=== PATIENT | male | born 1955 | race Hispanic/Latino ===

== ENCOUNTER 2019-06-29 07:58 | Inpatient (IN) | payer OTHER ==
[~2019-06-29] VITALS: Ht 165.1 cm; Wt 129.3 kg
[~2019-06-29 07:58] MED LIST: ALLOPURINOL100 MG PO; AMARYL4 MG PO; ASPIR 8181 MG PO; HYDRALAZINE HCL10 MG PO; JANUVIA100 MG PO; NORCO 5-325 TA1 EACH PO; VASOTEC10 M1 PO; Zocor PO
[2019-06-29 08:53] LABS: BASOPHILS % 0.3 % (0.0-1.0); EOSINOPHILS # (AUTO) 0.1 (0.0-0.4); EOSINOPHILS % 0.7 % (0.0-6.0); HEMATOCRIT 38.8 % (38.2-49.6); LYMPHOCYTES # (AUTO) 0.6 (1.0-3.2); LYMPHOCYTES % 7.9 % (18.0-39.1); MEAN CORPUSCULAR HEMOGLOBIN 29.6 pg (28-32); MEAN CORPUSCULAR HGB CONC 33.5 g/dL (31-35); MEAN CORPUSCULAR VOLUME 88.4 fL (81-99); MONOCYTES # (AUTO) 0.5 (0.2-0.8); MONOCYTES % 6.2 % (4.4-11.3); NEUTROPHILS # (AUTO) 6.2 (2.1-6.9); NEUTROPHILS % 84.6 % (38.7-80.0); PLATELET COUNT 125 x10e3/uL (140-360); RED BLOOD COUNT 4.39 x10e6/uL (4.3-5.7); RED CELL DISTRIBUTION WIDTH 14.5 % (11.7-14.4)
[2019-06-29 08:54] LABS: BILIRUBIN,URINE SMALL (NEGATIVE); CLARITY,URINE CLEAR (CLEAR); COLOR,URINE YELLOW (YELLOW); KETONES,URINE NEGATIVE (NEGATIVE); LEUKOCYTE ESTERASE ,URINE NEGATIVE (NEGATIVE); NITRITE,URINE NEGATIVE (NEGATIVE); URINE UROBILINOGEN 1 mg/dL (0.2 - 1)
[2019-06-29 08:57] LABS: PROTEIN,URINE DIPSTICK 3+ (NEGATIVE)
[2019-06-29] MEDS ORDERED: ACETAMINOPHEN 325 MG TAB PO ONE (09:00)
[2019-06-29 09:07] LABS: ALBUMIN 2.7 g/dL (3.5-5.0); ALBUMIN/GLOBULIN RATIO 0.6 (0.8-2.0); ANION GAP 12.2 mmol/L (8-16); CREATININE, SERUM 2.66 mg/dL (0.72-1.25); POTASSIUM 4.2 mmol/L (3.5-5.1); RBC,URINE 0-5 /HPF (0-5)
[2019-06-29 09:08] LABS: BACTERIA,URINE MODERATE /HPF; EPITHELIAL CELLS,URINE FEW /LPF
[2019-06-29 09:09] LABS: AMORPHOUS SEDIMENT,URINE FEW (FEW); HYALINE CASTS 0-1 (0-1); MUCUS,URINE RARE (RARE)
[2019-06-29] MEDS ORDERED: SODIUM CHLORIDE 0.9% 1000ML 1,000 ML IV ONE (09:15)
--- NOTE | 2019-06-29 09:22 | Diagnostic Imaging Report ---
EXAMINATION: CHEST 2 VIEWS INDICATION: Sepsis COMPARISON: None FINDINGS: LINES/TUBES:None LUNGS:The lungs are well-inflated. No focal consolidation or pulmonary edema. PLEURA:No pleural effusion or pneumothorax. MEDIASTINUM:The heart is mildly enlarged. BONES/SOFT TISSUES:No acute osseous injury. ABDOMEN:No free air under the diaphragm. IMPRESSION: Mild cardiomegaly. No focal pneumonia or pulmonary edema. Signed by: Sapna Earl MD on 06/29/2019 9:19 AM
[2019-06-29 09:27] LABS: EOSINOPHILS % (MANUAL) 2 % (0-7); LYMPHOCYTES % (MANUAL) 4 % (19-48); MONOCYTES % (MANUAL) 8 % (3.4-9.0); NEUTROPHILS % (MANUAL) 86 % (40-74)
[2019-06-29 09:28] LABS: PLATELET ESTIMATE SLIGHTLY DECREASED; RBC MORPHOLOGY COMMENT NORMAL
[2019-06-29 09:29] LABS: PLATELET MORPHOLOGY COMMENT NORMAL
[2019-06-29 09:30] LABS: INFLUENZAE A&B ANTIGEN (RAPID) NEGATIVE (NEGATIVE); STREPTOCOCCUS GRP A ANTIGEN NEGATIVE (NEGATIVE)
[2019-06-29] MEDS ORDERED: ONDANSETRON HCL INJ 2MG/ML 2ML 2 MG/ML VIAL IV ONE (09:30)
[2019-06-29] MEDS ORDERED: FAMOTIDINE 20 MG/2 ML VIAL IV ONE (10:00)
[2019-06-29] MEDS ORDERED: DIATRIZOATE MEGL/DIATRIZOA SOD 30 ML BTL PO ONE (11:28)
--- NOTE | 2019-06-29 13:36 | Diagnostic Imaging Report ---
EXAM: CT Abdomen and Pelvis WITHOUT intravenous contrast INDICATION: Left lower quadrant abdominal pain. COMPARISON: None. TECHNIQUE: Abdomen and pelvis were scanned utilizing a multidetector helical scanner from the lung base to the pubic symphysis without administration of IV contrast. Coronal and sagittal reformations were obtained. IV CONTRAST: None ORAL CONTRAST: Gastrografin COMPLICATIONS: None RADIATION DOSE: Total DLP: 1222.1 mGy*cm Dose modulation, iterative reconstruction, and/or weight based adjustment of the mA/kV was utilized to reduce the radiation dose to as low as reasonably achievable. FINDINGS: LOWER THORAX: No lung base consolidation. Scattered atherosclerotic coronary artery calcifications. HEPATOBILIARY: No focal liver lesions. Mildly distended gallbladder measuring up to 5.2 cm maximum diameter. Dependent radiopaque gallstones. No gallbladder wall thickening or pericholecystic fluid. Distal common bile duct dilated to 12 mm. SPLEEN: No splenomegaly. PANCREAS: No focal masses or ductal dilatation. ADRENALS: No adrenal nodules. KIDNEYS/URETERS: No hydronephrosis or renal calculi. Left renal cysts measure up to 2.8 cm. Mild bilateral perinephric stranding. PELVIC ORGANS/BLADDER: Prostatomegaly to 5.7 cm. PERITONEUM / RETROPERITONEUM: No free air or fluid. LYMPH NODES: No lymphadenopathy. VESSELS: Scattered atherosclerotic calcifications of the nonaneurysmal abdominal aorta and major branches. GI TRACT: No abnormal bowel wall thickening. No bowel obstruction. Normal appendix. BONES AND SOFT TISSUES: No acute osseous injury. No suspicious lytic or blastic lesions. Mild degenerative changes of the visualized spine. Small focal hernia containing a small amount of fat. IMPRESSION: Cholelithiasis and mildly distended gallbladder without specific CT evidence of cholecystitis. Dilation of the distal common bile duct to 12 mm. If the patient has symptoms localizing to the right upper quadrant, recommend MRCP to exclude distal biliary ductal obstruction. No abnormal bowel thickening or bowel obstruction. Atherosclerotic arterial calcifications including of the coronary arteries. Signed by: Sapna Earl MD on 06/29/2019 1:32 PM
[2019-06-29] MEDS ORDERED: MORPHINE SULFATE INJ 4 MG/ML INJ 1ML IV PRN (14:15)
[2019-06-29] MEDS ORDERED: ONDANSETRON HCL INJ 2MG/ML 2ML 2 MG/ML VIAL IV PRN (14:15)
[2019-06-29] MEDS ORDERED: SODIUM CHLORIDE FLUSH 10 ML SYR INJ PRN (14:15)
[2019-06-29] MEDS ORDERED: MORPHINE SULFATE 2 MG/ML SYR 1ML IV PRN (14:15)
--- OUTSIDE RECORDS SUMMARY | 2019-06-29 14:20 | XMS REPORT ---
Author [facility] Address Unknown Phone Unavailable Care Team Providers Care Animal Nutrition Consultant Name Role Phone Rolanda RIOS Unavailable Unavailable Problems This patient has no known problems. Allergies, Adverse Reactions, Alerts This patient has no known allergies or adverse reactions. Medications This patient has no known medications. Results Test Description Test Time Test Comments Text Results Atomic Results Result Comments CT ABDOMEN/PELVIS WO 2019-06-29 13:23:00 [facility] [address] [address] Patient Name: DANICA QUINTANA MR #: [id number] : 1955 Age/Sex: 63/M Req #: [id number] Adm Physician: Ordered by: MIKE RIOS MD Report #: [id number] Location: ER Room/Bed: Procedure: [id number] CT/CT ABDOMEN/PELVIS WO Exam Date: 06/29/19 Exam Time: 1230 REPORT STATUS: Signed EXAM: CT Abdomen and Pelvis WITHOUT intravenous contra st INDICATION: Left lower quadrant abdominal pain. COMPARISON: None. TECHNIQUE: Abdomen and pelvis were scanned utilizing a multidetector helical scanner from the lung base to the pubic symphysis without administration of IV contrast. Coronal and sagittal reformations were obtained. IV CONTRAST: None ORAL CONTRAST: Gastrografin COMPLICATIONS: None RADIATION DOSE: Total DLP: 1222.1 mGy*cm Dose modulation, iterative reconstruction, and/or weight based adjustment of the mA/kV was utilized to reduce the radiation dose to as low as reasonably achievable. FINDINGS: LOWER THORAX: No lung base consolidation. Scattered atherosclerotic coronary artery calcifications. HEPATOBILIARY: No focal liver lesions. Mildly distended gallbladder measuring up to 5.2 cm maximum diameter. Dependent radiopaque gallstones. No gallbladder wall thickening or pericholecystic fluid. Distal common bile duct dilated to 12 mm. SPLEEN: No splenomegaly. PANCREAS: No focal masses or ductal dilatation. ADRENALS: No adrenal nodules. KIDNEYS/URETERS: No hydronephrosis or renal calculi. Left renal cysts measure up to 2.8 cm. Mild bilateral perinephric stranding. PELVIC ORGANS/BLADDER: Prostatomegaly to 5.7 cm. PERITONEUM / RETROPERITONEUM: No free air or fluid. LYMPH NODES: No lymphadenopathy. VESSELS: Scattered atherosclerotic calcifications of the nonaneurysmal abdominal aorta and major branches. GI TRACT: No abnormal bowel wall thickening. No bowel obstruction. Normal appendix. BONES AND SOFT TISSUES: No acute osseous injury. No suspicious lytic or blastic lesions. Mild degenerative changes of the visualized spine. Small focal hernia containing a small amount of fat. IMPRESSION: Cholelithiasis and mildly distended gallbladder without specific CT evidence of cholecystitis. Dilation of the distal common bile duct to 12 mm. If the patient has symptoms localizing to the right upper quadrant, recommend MRCP to exclude distal biliary ductal obstruction. No abnormal bowel thickening or bowel obstruction. Atherosclerotic arterial calcifications including of the coronary arteries. Signed by: Teresa Earl MD on 06/29/2019 1:32 PM Dictated By: TERESA EARL MD [id number] Transcribed By: GWENDOLYN on 06/29/19 1332 COPY TO: MIKE RIOS MD CHEST 2 VIEWS 2019-06-29 09:17:00 [address] [address] Patient Name: DANICA QUINTANA MR #: [id number] : 1955 Age/Sex: 63/M Req #: [id number] Adm Physician: Ordered by: MIKE RIOS MD Report #: [id number] Location: ER Room/Bed: Procedure: [id number] DX/CHEST 2 VIEWS Exam Date: 06/29/19 Exam Time: 899 REPORT STATUS: Signed EXAMINATION: CHEST 2 VIEWS INDICATION: Sepsis COMPARISON: None FINDINGS: LINES/TUBES:None LUNGS:The lungs are well-inflated. No focal consolidation or pulmonary edema. PLEURA:No pleural effusion or pneumothorax. MEDIASTINUM:The heart is mildly enlarged. BONES/SOFT TISSUES:No acute osseous injury. ABDOMEN:No free air under the diaphragm. IMPRESSION: Mild cardiomegaly. No focal pneumonia or pulmonary edema. Signed by: Teresa Earl MD on 06/29/2019 9:19 AM Dictated By: TERESA EARL MD 8 Transcribed By: GWENDOLYN on 06/29/19918 COPY TO: MIKE RIOS MD
[2019-06-29] MEDS: SODIUM CHLORIDE 0.9% 1000ML 1,000 ML IV SCH ×2 (15:02→23:02)
--- NOTE | 2019-06-29 15:06 | Diagnostic Imaging Report ---
EXAM: Right upper quadrant abdominal ultrasound INDICATION: Right upper quadrant pain COMPARISON: Abdomen and pelvis CT of 06/29/2019 TECHNIQUE: Transverse and longitudinal images of the right upper quadrant abdomen were obtained FINDINGS: Liver: Size: 18.0 cm in the right midclavicular line, normal Appearance: Normal echogenicity, smooth contour Mass: No focal masses Gallbladder: Radiopaque gallstones and small amount of sludge in the gallbladder. No gallbladder wall thickening or pericholecystic fluid. Negative sonographic Blum's sign. Gallbladder wall measures 2 mm. Bile Ducts: Intrahepatic Ducts: No dilatation Extrahepatic Ducts: Common bile duct measures 10 mm, dilated Pancreas: Visualized portions of the pancreatic head, neck and proximal body are normal. Kidney: The right kidney measures 11.1 cm without evidence of hydronephrosis or stone. Vessels: Aorta: Visualized portions are normal Inferior Vena Cava: Visualized portions are normal Main Portal Vein: 0.9 cm, normal size with hepatopetal flow. Free Fluid: No ascites or pleural effusion IMPRESSION: Cholelithiasis and gallbladder sludge. No sonographic evidence of cholecystitis. Dilated common bile duct. Signed by: Sapna Earl MD on 06/29/2019 3:03 PM
--- NOTE | 2019-06-29 15:50 | NUR ---
Received patient from ER. Respiration even and unlabored. Denies pain. Call light in reach. Family at bedside.
[2019-06-29 16:00] VITALS: BP 188/92
[2019-06-29 16:28] VITALS: BP 188/92
[2019-06-29 16:59] VITALS: BP 188/92
[2019-06-29 19:18] VITALS: BP 173/92
--- NOTE | 2019-06-29 19:18 | NUR ---
PT IS RESTING IN BED WITH AT BEDSIDE. RESPIRATION IS EVEN AND UNLABORED, NO DISTRESS NOTED. BED IN THE LOWEST POSITION, LOCKED, AND CALL LIGHT WITHIN REACH. WILL CONTINUE TO MONITOR.
[2019-06-29 20:01] VITALS: BP 173/88
--- NOTE | 2019-06-29 20:50 | NUR ---
PER DR Mamie VARGAS CHANGE MRCP TO STAT WITHOUT CONTRAST. SPOKE TO SHERRI IN RADIOLOGY AND NOTIFIED HER OF THE CHANGE. WILL CONTINUE TO MONITOR.
[2019-06-29 23:39] VITALS: BP 164/88
[2019-06-30] VITALS (7 sets, daily range): BP systolic 140–179; BP diastolic 65–86
--- NOTE | 2019-06-30 00:20 | Diagnostic Imaging Report ---
EXAM: Magnetic Resonance Cholangiopancreatography (M.R.C.P.) INDICATION: Gallstone , common bile duct dilation COMPARISON: Abdominal CT 06/29/2019. TECHNIQUE: Multiplanar, multisequence MRCP was performed, with departmental protocol. IV Contrast: None Oral Contrast: None Medications: None COMPLICATIONS: None FINDINGS: Several sequences contain significant motion artifact which limits evaluation. In the coronal SSFSE sequence skips posterior half of common bile duct. LOWER THORAX: Unremarkable. HEPATOBILIARY: No focal hepatic lesions. The common bile duct measures up to 1.2 cm in diameter and smoothly tapers distally without a discrete distal biliary duct obstructing lesion. A questionable punctate signal void in the mid common bile duct (series 7 image 31), although this could be an artifact and is not seen on the heavily T2 weighted sequences and evaluation on other sequences is limited due to motion. On the thin slice heavily T2-weighted sequence punctate nonobstructive signal voids in the common hepatic duct (series 12 image 5), are not seen on other sequences, without proximal biliary ductal dilation. GALLBLADDER: A few discrete subcentimeter signal voids in the dependent aspect of the proximal gallbladder body consistent with gallstones. Gallbladder is distended up to 11.8 cm. No wall thickening. SPLEEN: No splenomegaly. PANCREAS: No focal masses or ductal dilatation. ADRENALS: No adrenal nodules KIDNEYS/URETERS: No hydronephrosis. No cystic or solid mass lesions. No stones. A 1.4 cm simple cysts in the left renal inferior pole. Trace bilateral perinephric fat stranding. GI TRACT: No abnormal distention, wall thickening, or evidence of bowel obstruction. Appendix is not clearly identified. There is however no fat stranding or adenopathy in the right lower quadrant to suggest appendicitis. LYMPH NODES: No lymphadenopathy. VESSELS: Unremarkable. PERITONEUM / RETROPERITONEUM: No free air or fluid. BONES: There are degenerative changes in the spine. SOFT TISSUES: Unremarkable. IMPRESSION: Limited exam due to respiratory motion. 1. A few tiny layering dependent gallstones in the gallbladder lumen. The gallbladder is distended, without other evidence of acute obstructive cholecystitis. 2. Questionable punctate biliary stone in the mid common bile duct and in the main hepatic duct, although these findings could be artifactual due to scan limitations. No discrete obstructing lesion in the distal common bile duct to explain common bile duct dilation, rather the common bile duct smoothly tapers at the ampulla. Signed by: Demetri Fong DO on 06/30/2019 12:17 AM
[2019-06-30 05:04] LABS: BASOPHILS % 0.6 % (0.0-1.0); EOSINOPHILS # (AUTO) 0.1 (0.0-0.4); EOSINOPHILS % 1.4 % (0.0-6.0); HEMATOCRIT 33.8 % (38.2-49.6); HEMOGLOBIN 11.1 g/dL (14.0-18.0); LYMPHOCYTES # (AUTO) 0.6 (1.0-3.2); LYMPHOCYTES % 11.6 % (18.0-39.1); MEAN CORPUSCULAR HEMOGLOBIN 29.5 pg (28-32); MEAN CORPUSCULAR HGB CONC 32.8 g/dL (31-35); MEAN CORPUSCULAR VOLUME 89.9 fL (81-99); MONOCYTES # (AUTO) 0.5 (0.2-0.8); MONOCYTES % 9.6 % (4.4-11.3); NEUTROPHILS # (AUTO) 3.8 (2.1-6.9); NEUTROPHILS % 76.6 % (38.7-80.0); PLATELET COUNT 106 x10e3/uL (140-360); RED BLOOD COUNT 3.76 x10e6/uL (4.3-5.7); RED CELL DISTRIBUTION WIDTH 14.5 % (11.7-14.4)
[2019-06-30 05:13] LABS: INR 0.94; PROTHROMBIN TIME 13.1 seconds (11.9-14.5)
[2019-06-30 05:25] LABS: ALBUMIN 2.5 g/dL (3.5-5.0); ALBUMIN/GLOBULIN RATIO 0.7 (0.8-2.0); ANION GAP 11.8 mmol/L (8-16); CALCIUM 9.7 mg/dL (8.4-10.2); CREATININE, SERUM 2.49 mg/dL (0.72-1.25); POTASSIUM 3.8 mmol/L (3.5-5.1)
[2019-06-30] MEDS: SODIUM CHLORIDE 0.9% 1000ML 1,000 ML IV SCH (06:09)
[2019-06-30] MEDS: DEXTROSE 5%/0.9% SOD CHL 1,000 ML IV SCH (08:09)
[2019-06-30] MEDS ORDERED: DEXTROSE 50% SYRINGE 50 ML IV ONE (08:30)
--- NOTE | 2019-06-30 09:00 | NUR ---
pt alert resp even and unlabored, no distress noted, pt able to make needs known, no c/o pain at this time, call light in reach
--- NOTE | 2019-06-30 09:50 | NUR ---
PT SIGN CONSENT FOR PROCEDURE.
[2019-06-30] MEDS: CEFOXITIN 1GM/ D5W 50ML 50 ML IV SCH ×3 (10:00→21:27)
[2019-06-30] MEDS ORDERED: DEXTROSE 50% SYRINGE 50 ML IV PRN (10:00)
[2019-06-30] MEDS: INSULIN LISPRO 100 UNIT/1 ML 3ML VIAL SQ SCH ×3 (11:30→20:13)
--- NOTE | 2019-06-30 12:30 | Consultation ---
DATE OF CONSULTATION: 06/30/2019 HISTORY OF PRESENT ILLNESS: The patient is a 63-year-old male, who presents with complaints of abdominal pain. Says he has had pain in the upper abdomen for about 3 days. He has had some associated nausea. He has not had any fever. Evaluation with imaging studies revealed gallstones and sludge in the gallbladder. An MRCP was done, which revealed question of filling defects in the bile ducts outside the gallbladder. CT of the abdomen revealed the gallbladder to be distended with no fluid around. PAST MEDICAL HISTORY: Significant for hypertension, diabetes, hyperlipidemia, and gout. ALLERGIES: HE HAS NO KNOWN ALLERGIES. PAST SURGICAL HISTORY: He has not had previous abdominal surgeries. CURRENT MEDICATIONS: Listed in the chart. FAMILY HISTORY: Noncontributory. SOCIAL HISTORY: The patient does not smoke cigarettes. Occasionally drinks alcohol. REVIEW OF SYSTEMS: As stated above, he has had no fever, no weight loss. PHYSICAL EXAMINATION: GENERAL: The patient is awake and alert, in no distress. VITAL SIGNS: At this time are normal. HEENT: The sclerae are not icteric. NECK: Supple. No masses. LUNGS: Equal breath sounds are clear bilaterally. CARDIAC: Regular rate and rhythm with no murmur. ABDOMEN: Tender in the right upper quadrant. There is no mass. There are no definite signs of peritonitis. There is no organomegaly. EXTREMITIES: No edema. NEUROLOGIC: Grossly intact. LABORATORY TESTS: The white blood cell count is normal. Hemoglobin and hematocrit are normal. Chemistries revealed normal lipase. Bilirubin is mildly elevated at 1.7. AST, ALT, and alkaline phosphatase are also elevated. BUN and creatinine are also elevated. ASSESSMENT: A 63-year-old male with findings suggestive of acute cholecystitis and cholelithiasis, possible choledocholithiasis. He has been seen by Gastroenterology and an ERCP is planned for today. He will benefit from cholecystectomy, which I planned to schedule for tomorrow. Procedure was explained to the patient including risks, benefits, and alternatives. He understands. He has had the opportunity to ask questions. Thank you for asking me to see Mr. Romero. MD INGRID Choe/OSMIN /[id number]
[2019-06-30] MEDS ORDERED: IOPAMIDOL 300MG/ML 50ML INFUS..BTL IV ONE ×2 (12:50→13:31)
--- NOTE | 2019-06-30 13:27 | NUR ---
Attempted to do DPA. Pt off unit at procedure at this time.
--- NOTE | 2019-06-30 15:38 | History and Physical ---
PRIMARY CARE PHYSICIAN: Rohit Haskins MD. CHIEF COMPLAINT: Abdominal pain for the past 3 days. HISTORY OF PRESENT ILLNESS: A 63-year-old male, morbidly obese, baseline; gout, diabetes, hypertension, and dyslipidemia, came in with abdominal pain for the past 3 days. His lab work in the emergency room showed that he has elevated liver enzyme, sign of obstruction and further workup with ultrasound of abdomen was complete along with CT scan of the abdomen, pelvis, and then subsequently MRCP showing that he has a small common bile duct stone along with that gallstone. The patient is pending for further evaluation with Gastroenterology and subsequently will need to see a general surgeon for his gallbladder removal. PAST MEDICAL HISTORY: Obesity, diabetes type 2, hypertension, dyslipidemia. PAST SURGICAL HISTORY: Noncontributory. SOCIAL HISTORY: The patient does not smoke or use alcohol. No recreational drugs. ALLERGIES: NO KNOWN ALLERGIES. HOME MEDICATIONS: List reviewed. REVIEW OF SYSTEMS: As mentioned above. PHYSICAL EXAMINATION: VITAL SIGNS: Temperature is 98, blood pressure 143/66, pulse rate is 64, respirations 17. GENERAL: The patient is awake, alert, and oriented, not in any distress. HEENT: Normocephalic, atraumatic. Pupils reactive. Anicteric. NECK: Grossly supple. PULMONARY: Clear. CARDIOVASCULAR: Regular rate and rhythm. ABDOMEN: Soft, obese. Tenderness in the upper quadrant area, more so in the right upper than left upper quadrant area. No rebound or guarding. EXTREMITIES: No cyanosis or edema. NEUROLOGIC: There is no gross focal deficit. LABORATORY DATA: Sodium 136, potassium 3.8, chloride 108, bicarb 20, BUN 33, creatinine 2.5, glucose is 62, lactic acid is normal 0.8, total bilirubin is 1.7, AST 80, ALT 144, alkaline phos is 383, albumin is 2.8. WBC is 7.3, hemoglobin 13, hematocrit 39, platelets 125. MRCP showed that he has a tiny gallstone in the gallbladder lumen. There is a punctate biliary stone in the mid common bile duct, gallbladder with gallstones. Abdomen and pelvis with acute cholecystitis. IMPRESSION: 1. Common bile duct stone. 2. Cholecystitis. 3. Morbid obesity. 4. Diabetes type 2. 5. Hypertension. 6. Dyslipidemia. PLAN: Consultation with Dr. Juan Weller and Dr. Elroy Law. Continue with antibiotic. Supportive measure. Pain control. IV fluids. We will follow up on the patient's bypass and surgical management. MD JR Mcintyre/OSMIN /[id number]
[2019-06-30] MEDS: FAMOTIDINE 20 MG/2 ML VIAL IV SCH (17:00)
--- NOTE | 2019-06-30 18:36 | NUR ---
pt consent signed for gallbladder procedure.
--- NOTE | 2019-06-30 19:11 | NUR ---
report given to to oncoming nurse.
--- NOTE | 2019-06-30 19:15 | NUR ---
patient received awake, alert, lying quietly in bed. no c/o pain noted. ivf continue to infuse without difficulty. patient to remain npo after mn for surgery tomorrow. patient verbalizes understanding of this. pm assessment complete. noted at the bedside. patient instructed to call for assistance when needed.
--- NOTE | 2019-06-30 20:19 | Diagnostic Imaging Report ---
Hepatobiliary Scan with Gallbladder Ejection Fraction Clinical information: Abdominal pain; cholelithiasis; transaminitis Technique: Following intravenous administration of 6.6 millicuries of Tc-99m mebrofenin, dynamic images of the abdomen in the anterior projection were obtained through 54 minutes. Sincalide (CCK analog) 2.7 micrograms was administered intravenously over 30 minutes with additional imaging for determination of gallbladder ejection fraction. Discussion: Perfusion of the liver is normal. Extraction of tracer by the liver parenchyma is mildly prolonged. Tracer appears promptly within the biliary tract. The bile ducts in the left hepatic lobe have an entangled appearance. The gallbladder begins to fill by 40 minutes post injection of tracer and fills adequately. Tracer is seen in the small bowel during the sincalide infusion. There is no contractile response by the gallbladder to the pharmacologic dose of sincalide. No emptying of the gallbladder occurs during the 30 minute infusion. Impression: 1. Filling of the gallbladder excludes acute cystic duct obstruction/acute cholecystitis. 2. The gallbladder ejection fraction is undefined as there is no emptying of the gallbladder during the infusion of sincalide. This absence of a contractile response to sincalide supports the clinical diagnosis of chronic cholecystitis/gallbladder dyskinesia. 3. Mild hepatocyte dysfunction consistent with transaminitis. 4. Entangled appearance of the bile ducts in the left hepatic lobe is of uncertain clinical significance. No correlate is seen on the MRI MRCP of 06/29/[address] abdo/pelvis of 06/29/2019. Signed by: Dr. Christina Rodríguez M.D. on 07/01/2019 9:26 AM
[2019-07-01] VITALS (8 sets, daily range): BP systolic 145–176; BP diastolic 69–85
[2019-07-01] MEDS: DEXTROSE 5%/0.9% SOD CHL 1,000 ML IV SCH ×3 (02:51→23:06)
[2019-07-01 05:53] LABS: BASOPHILS % 0.6 % (0.0-1.0); EOSINOPHILS # (AUTO) 0.2 (0.0-0.4); EOSINOPHILS % 3.4 % (0.0-6.0); HEMOGLOBIN 11.4 g/dL (14.0-18.0); LYMPHOCYTES # (AUTO) 1.1 (1.0-3.2); LYMPHOCYTES % 22.6 % (18.0-39.1); MEAN CORPUSCULAR HEMOGLOBIN 29.4 pg (28-32); MEAN CORPUSCULAR HGB CONC 32.6 g/dL (31-35); MEAN CORPUSCULAR VOLUME 90.2 fL (81-99); MONOCYTES # (AUTO) 0.6 (0.2-0.8); MONOCYTES % 11.9 % (4.4-11.3); NEUTROPHILS # (AUTO) 2.8 (2.1-6.9); NEUTROPHILS % 61.3 % (38.7-80.0); PLATELET COUNT 122 x10e3/uL (140-360); RED BLOOD COUNT 3.88 x10e6/uL (4.3-5.7); RED CELL DISTRIBUTION WIDTH 14.6 % (11.7-14.4)
[2019-07-01] MEDS: CEFOXITIN 1GM/ D5W 50ML 50 ML IV SCH ×3 (05:58→21:57)
[2019-07-01 06:20] LABS: ANION GAP 13.1 mmol/L (8-16); POTASSIUM 4.1 mmol/L (3.5-5.1)
[2019-07-01 06:21] LABS: ALBUMIN 2.3 g/dL (3.5-5.0); ALBUMIN/GLOBULIN RATIO 0.6 (0.8-2.0); CALCIUM 9.7 mg/dL (8.4-10.2); CREATININE, SERUM 2.52 mg/dL (0.72-1.25)
--- NOTE | 2019-07-01 07:00 | NUR ---
BEDSIDE SHIFT REPORT RECEIVED FROM INGA OLIVEIRA. PT DENIES NEEDS AT THIS TIME.
[2019-07-01] MEDS: INSULIN LISPRO 100 UNIT/1 ML 3ML VIAL SQ SCH ×4 (07:30→21:00)
[2019-07-01] MEDS: FAMOTIDINE 20 MG/2 ML VIAL IV SCH ×2 (08:33→17:00)
[2019-07-01] MEDS ORDERED: BUPIVACAINE HCL 0.5% INJ 30 ML VIAL INJ ONE (14:03)
--- NOTE | 2019-07-01 14:17 | NUR ---
PT OFF THE FLOOR TO OR.
[2019-07-01] MEDS ORDERED: IOPAMIDOL 300MG/ML 50ML INFUS..BTL IV ONE (14:59)
[2019-07-01] MEDS ORDERED: ONDANSETRON HCL INJ 2MG/ML 2ML 2 MG/ML VIAL IV PRN (16:45)
[2019-07-01] MEDS ORDERED: HYDROCODONE/APAP 7.5MG-325MG 1 EA TAB PO PRN (16:45)
[2019-07-01] MEDS ORDERED: FENTANYL CITRATE/PF 100MCG/2 ML INJ ONE ×2 (16:57→19:12)
[2019-07-01] MEDS ORDERED: ONDANSETRON HCL INJ 2MG/ML 2ML 2 MG/ML VIAL ONE ×2 (16:57→18:28)
[2019-07-01] MEDS ORDERED: HYDRALAZINE HCL 20 MG/ML VIAL ONE (17:42)
--- NOTE | 2019-07-01 18:27 | NUR ---
PT BACK TO THE FLOOR. VITALS WNL. PT HAS ABDOMINAL PAIN 9 OF 10. MEDICATED. SCD'S PLACED. PT DENIES FURTHER NEEDS AT THIS TIME. FAMILY AT BEDSIDE.
[2019-07-01] MEDS ORDERED: LIDOCAINE HCL 2% LOCAL INJ 5 ML SDV VIAL INJ ONE (18:28)
[2019-07-01] MEDS ORDERED: PROPOFOL IV EMULSION 10 MG/ML 20 ML VIAL ONE (18:28)
[2019-07-01] MEDS ORDERED: SEVOFLURANE INHAL SOLN 250 ML PEN BTL ONE (18:28)
[2019-07-01] MEDS ORDERED: DEXAMETHASONE SOD PHOS INJ 4 MG/ML VIAL ONE (18:28)
[2019-07-01] MEDS ORDERED: MIDAZOLAM HCL 2 MG/2 ML VIAL ONE (19:12)
--- NOTE | 2019-07-01 19:27 | NUR ---
Patient received lying in bed. AAO x 3. Family at bedside. Patient had no complaints of pain. No signs of respiratory distress. Trocar sites intact, no bleeding. Fall precautions implemented. Patient/ instructed to call for assistance when needed. Call light within reach.
--- NOTE | 2019-07-01 22:47 | Operative Report ---
DATE OF PROCEDURE: 07/01/2019 SURGEON: Juan Weller MD PREOPERATIVE DIAGNOSIS: Acute on chronic cholecystitis, cholelithiasis. POSTOPERATIVE DIAGNOSIS: Acute on chronic cholecystitis, cholelithiasis. PROCEDURES: Diagnostic laparoscopy, laparoscopic cholecystectomy attempted intraoperative cholangiogram. AIRLINE STEWARDESS: None. ANESTHESIA: General. INDICATIONS AND FINDINGS: The patient is a 63-year-old male who was admitted to the hospital with complaints of epigastric right upper quadrant abdominal pain, workup revealed gallstones. He has abnormal liver function tests and questionable stones in the common bile duct on MRCP. Attempted intraoperative cholangiogram was not successful as the cystic duct started to tear and the gallbladder was distended contained several small stones. TECHNIQUE: After adequate general endotracheal anesthesia patient in supine position, the abdomen was prepped and draped in a sterile fashion with ChloraPrep solution. Skin in the umbilicus was infiltrated with 0.5% Marcaine. Incision was made in the umbilicus abdominal wall was elevated and Veress needle was introduced. Pneumoperitoneum was then created. A 10 mm trocar and cannula was then passed through the umbilical wound. Laparoscopic camera was introduced. Initial laparoscopy revealed the gallbladder to be distended. Liver appeared normal. Stomach lower abdomen appeared normal, although obscured by omentum. A 10 mm trocar and cannula was placed in epigastrium, two 5 mm trocars and cannulas were placed in the right upper quadrant these were placed under direct vision. The gallbladder was tense, mildly edematous. It was decompressed with a needle. Fundus was then grasped, retracted superiorly neck of the gallbladder was grasped, retracted laterally. Peritoneum over the neck of the gallbladder was incised. The gallbladder cystic duct junction was dissected free. The cystic artery was also dissected free, the neck of the gallbladder completely dissected free. Cystic artery divided between hemoclips close to the gallbladder. A clip was then placed on the cystic duct close to the gallbladder. Cystic duct was only about 2 mm in diameter. Incision made in the cystic duct. However, attempts to pass the cholangiocatheter and the cystic duct started to tear. There was concern that the clips would not be able to be placed on the cystic duct. Because of this, I decided to not pursue the cholangiogram anymore. The cholangiocatheter was removed. The cystic duct was then divided between hemoclips with three clips being left on the common bile duct side. The gallbladder was dissected free from the liver using scissors and electrocautery. Once it was entirely free, it was placed into an Endopouch and brought through the epigastric cannula contained at least one small stone. The gallbladder bed was inspected for hemostasis which was seen to be adequate. It was irrigated with saline. All fluid aspirated inspected once again for hemostasis which was seen to be adequate. Instruments and cannulas were removed. Pneumoperitoneum was evacuated. Wounds were then closed. Fascia in the umbilical and epigastric wound closed with 0 Vicryl. Skin to all wounds closed with reuben. Sterile dressing was applied. The patient tolerated the procedure well. Estimated blood loss was 15 mL. There were no complications. All counts were correct. The patient was taken to the recovery room in satisfactory condition. MD INGRID Choe/MODL /[id number]
[2019-07-02] VITALS (8 sets, daily range): BP systolic 126–175; BP diastolic 60–93
--- NOTE | 2019-07-02 00:30 | NUR ---
Patient's BP elevated (175/93) with a heart rate of 89. Dr.J. Driver notified . Order received to discontinue IV fluids.
--- NOTE | 2019-07-02 01:30 | NUR ---
Blood pressure re-checked manually and recorded as 165/78. Will continue to monitor.
[2019-07-02 05:10] LABS: BASOPHILS % 0.2 % (0.0-1.0); HEMATOCRIT 40.3 % (38.2-49.6); LYMPHOCYTES # (AUTO) 0.7 (1.0-3.2); LYMPHOCYTES % 7.9 % (18.0-39.1); MEAN CORPUSCULAR HEMOGLOBIN 29.3 pg (28-32); MEAN CORPUSCULAR HGB CONC 32.3 g/dL (31-35); MONOCYTES # (AUTO) 0.6 (0.2-0.8); MONOCYTES % 6.6 % (4.4-11.3); NEUTROPHILS # (AUTO) 7.6 (2.1-6.9); NEUTROPHILS % 85.1 % (38.7-80.0); PLATELET COUNT 144 x10e3/uL (140-360); RED BLOOD COUNT 4.43 x10e6/uL (4.3-5.7); RED CELL DISTRIBUTION WIDTH 14.6 % (11.7-14.4)
[2019-07-02 05:39] LABS: ALBUMIN 2.5 g/dL (3.5-5.0); ALBUMIN/GLOBULIN RATIO 0.6 (0.8-2.0); ANION GAP 19.3 mmol/L (8-16); CALCIUM 9.9 mg/dL (8.4-10.2); CREATININE, SERUM 2.57 mg/dL (0.72-1.25); POTASSIUM 4.3 mmol/L (3.5-5.1)
[2019-07-02] MEDS: CEFOXITIN 1GM/ D5W 50ML 50 ML IV SCH ×3 (06:30→22:00)
--- NOTE | 2019-07-02 07:00 | NUR ---
BEDSIDE SHIFT REPORT RECEIVED FROM THE FUDGE CANDY MAKER RN. EDUCATED PT ABOUT FALL PRECAUTIONS. CALL LIGHT WITH IN EASY REACH. INSTRUCTED PT TO USE CALL LIGHT FOR ALL THE NEEDS. PT VERBALIZED UNDERSTANDING. BED IS LOW AND LOCKED. SIDE RAILS X2. PT FAMILY AT BEDSIDE. BED ALARM IS ON. PT DENIED FURTHER NEEDS.
--- NOTE | 2019-07-02 07:00 | NUR ---
Patient resting comfortably. Walking rounds done. Shift report given to oncoming nurse regarding patient's status.
[2019-07-02] MEDS: INSULIN LISPRO 100 UNIT/1 ML 3ML VIAL SQ SCH ×4 (08:52→21:42)
[2019-07-02] MEDS: FAMOTIDINE 20 MG/2 ML VIAL IV SCH ×2 (08:58→17:16)
--- NOTE | 2019-07-02 15:52 | NUR ---
PAGED DR. VILLARREAL REGARDING PT DIET CHANGE TO ADA FROM REGULAR. OKAY TO CHANGE PER THE
--- NOTE | 2019-07-02 19:00 | NUR ---
BEDSIDE SHIFT REPORT GIVEN TO THE TREE [employer]APPING [employer]ORER RN. PT DENIED FURTHER NEEDS. FAMILY AT BEDSIDE.
--- NOTE | 2019-07-02 19:05 | NUR ---
Patient visited in room during nursing rounds. Patient alert and oriented x3. No distress or discomfort noted. S/P Lap Cholecystectomy on 07/01/19 with 5 lap sites all over abdomen covered with band-aids (clean and dry). Pt denies pain at this time. Call shah within reach.
[2019-07-02] MEDS ORDERED: NORCO 7.5-3251 EACH PO (20:53)
--- NOTE | 2019-07-02 21:00 | NUR ---
Called Dr. Driver and informed patient's BP elevated at 174/93. MD aware and ordered to continue all home meds and included Nifedipine XL 30mg PO BID with first dose tonight.
[2019-07-02] MEDS ORDERED: HYDROCODONE/APAP 7.5MG-325MG 1 EA TAB PO PRN (21:15)
[2019-07-02] MEDS: NIFEDIPINE CR 30 MG TAB PO SCH (21:42)
[2019-07-02] MEDS: HYDRALAZINE HCL 25 MG TAB PO SCH (21:42)
--- NOTE | 2019-07-02 23:10 | NUR ---
Pt taking a shower by self. Linens changed.
[2019-07-03] VITALS: BP 160/90
--- NOTE | 2019-07-03 00:45 | NUR ---
Dr. Elroy Law came and visited pt in room. MD aware of pt condition.
[2019-07-03 04:00] VITALS: BP 145/70
[2019-07-03 06:07] LABS: ALBUMIN 2.3 g/dL (3.5-5.0); ALBUMIN/GLOBULIN RATIO 0.6 (0.8-2.0); ANION GAP 14.1 mmol/L (8-16); CALCIUM 9.9 mg/dL (8.4-10.2); CREATININE, SERUM 2.52 mg/dL (0.72-1.25); POTASSIUM 4.1 mmol/L (3.5-5.1)
[2019-07-03] MEDS: CEFOXITIN 1GM/ D5W 50ML 50 ML IV SCH ×2 (06:29→14:16)
--- NOTE | 2019-07-03 07:00 | NUR ---
BEDSIDE SHIFT REPORT RECEIVED FROM THE BARMAN RN. EDUCATED PT ABOUT FALL PRECAUTIONS. CALL LIGHT WITH IN EASY REACH. INSTRUCTED PT TO USE CALL LIGHT FOR ALL THE NEEDS. PT VERBALIZED UNDERSTANDING. BED IS LOW AND LOCKED. SIDE RAILS X2. PT AT BEDSIDE. PT DENIES NEEDS AT THIS TIME.
[2019-07-03 07:08] VITALS: BP 141/76
[2019-07-03] MEDS ORDERED: GLIMEPIRIDE 2 MG TAB PO SCH (07:30)
[2019-07-03] MEDS: INSULIN LISPRO 100 UNIT/1 ML 3ML VIAL SQ SCH ×2 (08:00→11:35)
[2019-07-03] MEDS: NIFEDIPINE CR 30 MG TAB PO SCH (08:00)
[2019-07-03] MEDS: FAMOTIDINE 20 MG/2 ML VIAL IV SCH (08:41)
[2019-07-03] MEDS: HYDRALAZINE HCL 25 MG TAB PO SCH (08:42)
[2019-07-03 08:44] VITALS: BP 141/76
[2019-07-03] MEDS ORDERED: PRAVASTATIN 20 MG TAB PO SCH (09:00)
[2019-07-03] MEDS ORDERED: ASPIRIN 325 MG TAB PO SCH (09:00)
[2019-07-03] MEDS ORDERED: ALLOPURINOL 100 MG TAB PO SCH (09:00)
[2019-07-03] MEDS ORDERED: SITAGLIPTIN 100 MG TAB PO SCH (09:00)
[2019-07-03 11:29] VITALS: BP 115/58
[2019-07-03] MEDS ORDERED: FAMOTIDINE20 MG PO (15:11)
[2019-07-03] MEDS ORDERED: NIFEDIPINE ER30 M1 (15:11)
[2019-07-03] MEDS ORDERED: TYLENOL WITH C1 EACH PO (15:12)
[2019-07-03] MEDS ORDERED: ZOFRAN4 MG SL (15:13)
[2019-07-03 15:18] VITALS: BP 120/78
--- NOTE | 2019-07-03 15:20 | NUR ---
PT DISCHARGED HOME SAFELY WITH HIS . PT ESCORTED TO THE PRIVATE CAR AT THE FRONT ENTRANCE. IV REMOVED. TIP INTACT. DRESSING APPLIED. RX GIVEN. PT DENIED FURTHER NEEDS.
== END 2019-07-03 15:38 | disposition home or self-care (01) | DRG 418 ==
LOC: ER 07:58 → ERHOLD 14:17 → MED/SURG2 15:51
PROVIDERS: ADMIT Internal Medicine; ATTEND Internal Medicine
PROC: 0FT44ZZ Resection of Gallbladder, Percutaneous Endoscopic Approach (ICD-10-PCS; principal; 2019-07-01 15:45)
DX: K80.12 Calculus of gallbladder with acute and chronic cholecystitis without obstruction (principal); Z68.42 Body mass index [BMI] 45.0-49.9, adult; N18.9 Chronic kidney disease, unspecified; E86.0 Dehydration; E11.22 Type 2 diabetes mellitus with diabetic chronic kidney disease; I12.9 Hypertensive chronic kidney disease with stage 1 through stage 4 chronic kidney disease, or unspecified chronic kidney disease; E66.01 Morbid (severe) obesity due to excess calories; M10.9 Gout, unspecified; E78.5 Hyperlipidemia, unspecified; I16.0 Hypertensive urgency; Z82.49 Family history of ischemic heart disease and other diseases of the circulatory system; Z79.82 Long term (current) use of aspirin; Z79.84 Long term (current) use of oral hypoglycemic drugs
CPT/HCPCS: 36415; 71046; 74176; 74181; 76705; 78227; 80053; 81001; 82948; 83518; 83605; 83690; 85025; 85610; 87040; 87070; 87086; 87400; 88304; 93005; 96372; 99284; A9537; J0360; J1100; J2001; J2250; J2270; J2405; J3010; J7030; J7042; J7799

== ENCOUNTER 2019-10-26 16:37 | Inpatient (IN) | payer OTHER ==
[~2019-10-26] VITALS: Ht 170.2 cm; Wt 129.3 kg
[~2019-10-26 16:37] MED LIST changes: +FAMOTIDINE20 MG PO; +NIFEDIPINE ER30 M1; +NORCO 7.5-3251 EACH PO; +TYLENOL WITH C1 EACH PO; +ZOFRAN4 MG SL
--- NOTE | 2019-10-26 16:50 | NUR ---
Pt reports he completed course of antibiotics 8 days ago, he reports it hasn't gotten worse. He reports the pain has decrease over the last 2 days. Noted 9cm in length and 4.5cm in width.
[2019-10-26] MEDS ORDERED: PIPER-TAZ 3.375 GM 50 ML IV STA (16:59)
[2019-10-26] MEDS ORDERED: MORPHINE SULFATE 2 MG/ML SYR 1ML IV PRN (17:15)
[2019-10-26] MEDS ORDERED: ONDANSETRON HCL INJ 2MG/ML 2ML 2 MG/ML VIAL IV PRN ×2 (17:15→19:45)
[2019-10-26] MEDS ORDERED: VANCOMYCIN 1GM/NS 250 ML 250 ML IV ONE ×2 (17:15→23:45)
[2019-10-26] MEDS ORDERED: MORPHINE SULFATE INJ 4 MG/ML INJ 1ML IV PRN (17:30)
--- NOTE | 2019-10-26 17:34 | Diagnostic Imaging Report ---
EXAM: CHEST SINGLE (PORTABLE) DATE: 10/26/2019 4:59 PM INDICATION: Head and neck abscess ^ERMD ORDER ^[id number] ^1700 ^Y COMPARISON: Chest x-ray, 06/29/2019 FINDINGS: Lines and tubes: None Heart is upper normal size for projection. No focal pulmonary opacity, pleural effusion or pneumothorax. Upper abdomen unremarkable. No acute bony abnormality to limits of portable imaging. IMPRESSION: No evidence for acute disease. Stable borderline heart size. Signed by: Dr. Matheus Pillai M.D. on 10/26/2019 5:30 PM
[2019-10-26] MEDS ORDERED: CLINDAMYCIN PHOS 900MG/ 50ML 50 ML IV SCH (18:00)
[2019-10-26 18:10] LABS: BASOPHILS # (AUTO) 0.1 (0.0-0.1); BASOPHILS % 0.6 % (0.0-1.0); EOSINOPHILS # (AUTO) 0.4 (0.0-0.4); EOSINOPHILS % 3.4 % (0.0-6.0); HEMATOCRIT 35.1 % (38.2-49.6); HEMOGLOBIN 11.4 g/dL (14.0-18.0); LYMPHOCYTES # (AUTO) 2.7 (1.0-3.2); LYMPHOCYTES % 21.5 % (18.0-39.1); MEAN CORPUSCULAR HEMOGLOBIN 28.5 pg (28-32); MEAN CORPUSCULAR HGB CONC 32.5 g/dL (31-35); MEAN CORPUSCULAR VOLUME 87.8 fL (81-99); MONOCYTES # (AUTO) 0.6 (0.2-0.8); MONOCYTES % 4.8 % (4.4-11.3); NEUTROPHILS # (AUTO) 8.5 (2.1-6.9); NEUTROPHILS % 68.2 % (38.7-80.0); PLATELET COUNT 255 x10e3/uL (140-360); RED CELL DISTRIBUTION WIDTH 14.5 % (11.7-14.4)
[2019-10-26 18:20] LABS: INR 0.99; PROTHROMBIN TIME 13.7 seconds (11.9-14.5)
[2019-10-26 18:21] LABS: PARTIAL THROMBOPLASTIN TIME 28.4 seconds (23.8-35.5)
[2019-10-26 18:30] LABS: ALBUMIN 2.7 g/dL (3.5-5.0); ALBUMIN/GLOBULIN RATIO 0.6 (0.8-2.0); CREATININE, SERUM 4.29 mg/dL (0.72-1.25)
[2019-10-26] MEDS ORDERED: SODIUM BICARBONATE 8.4% INJ 50 ML SYR IV STA (18:40)
[2019-10-26] MEDS ORDERED: DEXTROSE 50% SYRINGE 50 ML IV STA (18:40)
[2019-10-26] MEDS ORDERED: SODIUM CHLORIDE 0.9% 500ML 500 ML IV ONE (18:45)
[2019-10-26] MEDS ORDERED: INSULIN REGULAR, HUMAN 100 UNIT/1 ML 3ML VIAL IV ONE (18:45)
--- NOTE | 2019-10-26 19:18 | NUR ---
SPOKE TO MD Jaydon LEE @ [id number] HE SAID TO CANCEL THE SCHEDULED 11AM SURGERY FOR THE PATIENT. NOTIFIED MS WATKINS OVER SURGERY AT 1910. PER MS WATKINS CASE WILL BE CANCELLED. ALL ABOVE PASSED TO PM NURSE.
[2019-10-26] MEDS ORDERED: DEXTROSE 50% SYRINGE 50 ML IV PRN (19:45)
[2019-10-26] MEDS ORDERED: MELATONIN 5 MG TABLET PO PRN (19:45)
[2019-10-26] MEDS ORDERED: SOD POLYSTYRENE SULFONATE SUSP 15 GM/60 ML BTL PO ONE (19:45)
[2019-10-26] MEDS ORDERED: ACETAMINOPHEN 325 MG TAB PO PRN (19:45)
[2019-10-26] MEDS ORDERED: HYDROCODONE/APAP 5MG-325MG TAB PO PRN (19:45)
[2019-10-26] MEDS: SODIUM CHLORIDE 0.9% 1000ML 1,000 ML IV SCH ×2 (20:00→20:44)
--- NOTE | 2019-10-26 20:15 | History and Physical ---
CHIEF COMPLAINT: Scalp abscess. HISTORY OF PRESENT ILLNESS: This is a 64-year-old male, morbidly obese, history of hypertension, and type 2 diabetes, presents from the [facility], Dr. Garcia due to a scalp abscess that has been ongoing for the last 2 weeks. The patient reports that it initially started as a small little pimple, progressively got worse over the last 2 weeks. Denies any fever or any discharge. The patient has a known history of chronic kidney disease with a potassium of 6 on admission. The patient is scheduled to have an I and D by General Surgery tomorrow. The patient is seen and evaluated at bedside in the emergency room. He is currently doing well with no other issues at this time. The patient is aware of his high potassium in the past and has been following a low-potassium diet at home. REVIEW OF SYSTEMS: Pertinent positive: Scalp abscess x2 weeks. The rest of 14-point review of systems are reviewed with the patient and are negative. ALLERGIES: NO KNOWN DRUG ALLERGIES. HOME MEDICATIONS: He takes Tylenol No. 3, allopurinol, aspirin, famotidine, hydralazine, hydrocodone, nifedipine, Januvia, glimepiride, and Zofran. PAST MEDICAL HISTORY: Type 2 diabetes, hypertension, morbidly obese, and CKD stage 5. PAST SURGICAL HISTORY: Reports none. FAMILY HISTORY: Hypertension and diabetes. SOCIAL HISTORY: No drugs. No alcohol. Does not smoke. Good social support. He is . PHYSICAL EXAMINATION: VITAL SIGNS: Temperature is 99.1, pulse is 82, respiratory rate is 20, blood pressure 170/104, and pulse ox 98% on room air. GENERAL: Not in acute distress. Alert and oriented x3. Cooperative on examination. HEENT: Head; normocephalic, atraumatic. Eyes; pupils are equal, round, and reactive to light bilaterally. Extraocular movements intact bilaterally. Throat; no evidence of erythema or exudates in the posterior pharynx. Has poor dentition. NECK: Supple. Good range of motion. PULMONARY: Clear to auscultation bilaterally. No wheezing, no rales, no rhonchi, no crackles appreciated. CARDIOVASCULAR: Positive S1 and S2. No murmurs, rubs, or gallops appreciated. ABDOMEN: Soft, nondistended, and nontender to palpation. Bowel sounds present. MUSCULOSKELETAL: Strength is 5/5 throughout. No evidence of any muscle deficits on examination. No weakness appreciated. NEUROLOGIC: Cranial nerves 2 through 12 grossly intact. No evidence of any neurological deficits on exam. SKIN: The patient has an extensive posterior scalp abscess with no drainage, but tender to palpation with mild erythema. PSYCHIATRIC: Normal affect and mood. EXTREMITIES: No edema. Good range of motion throughout. LABORATORY FINDINGS: Show white count 12.3, hemoglobin 11.4, hematocrit is 35, and platelets of 255. Coagulation; PT 13, INR 0.99, and PTT 28.4. Chemistry; sodium 131, potassium 6, chloride 108, bicarb 16, anion gap of 13, BUN is 49, creatinine 4.29, glucose 187, and calcium is 10. Total bilirubin is 0.2, AST 27, ALT 34, and alkaline phosphatase 178. Total protein 7.4 and albumin is 2.7. MICROBIOLOGY: Blood cultures are pending. IMAGING STUDIES: Chest x-ray, no acute disease. IMPRESSION: 1. Scalp abscess-the patient has no fever, has elevated white count. ID has been consulted including General Surgery. He will have an I and D tomorrow morning. Continue with IV antibiotics and pain control. 2. Type 2 diabetes-insulin sliding scale, Accu-Cheks, A1c. 3. Hypertension-continue same home medications, p.r.n. hydralazine. 4. Chronic kidney disease, stage 5 with mild hyperkalemia-continue low-dose IV fluids, give Kayexalate, the patient's primary outbound telemarketer has been consulted. 5. Morbid obesity-discussed diet and exercise with the patient. 6. Nutrition-diabetic. 7. PT/OT evaluation. 8. Hold anticoagulation for surgery tomorrow and re-initiate after surgery. 9. Consultants: ID, Nephrology, and General Surgery. MD KENYETTA Lipscomb/MODL /[id number]
--- NOTE | 2019-10-26 20:40 | NUR ---
Received report from Er nurse.
[2019-10-26] MEDS: HYDRALAZINE HCL 10 MG TAB PO SCH (20:44)
[2019-10-26] MEDS: CEFEPIME 1GM/NS 0.9% 50 ML 50 ML IV SCH (20:44)
[2019-10-26] MEDS: NIFEDIPINE CR 30 MG TAB PO SCH (20:45)
[2019-10-26 21:05] VITALS: BP 180/97
--- NOTE | 2019-10-26 21:08 | NUR ---
Patient arrived to floor via stretcher to room 294.
--- NOTE | 2019-10-26 21:50 | NUR ---
SPOKE TO DR Rolanda LEE. PER MD WILL GO HEAD WITH 11AM CASE IN THE MORNING. PATIENT TO BE NPO PAST MIDNIGHT. MS JUNE OVER SURGERY IS AWARE. PM NURSE IS AWARE.
--- NOTE | 2019-10-26 22:06 | Consultation ---
DATE OF CONSULTATION: 10/26/2019 REASON FOR CONSULTATION: Scalp abscess. HISTORY OF PRESENT ILLNESS: This patient was seen in my office today, referred by primary care, Dr. Rohit Haskins, because of a scalp abscess. The history is that he has been treated as an outpatient for two weeks and then presented with increasing size of a bulge in the scalp area and tenderness. In the emergency room, the patient was found to have a 5 cm abscess of the scalp region. The patient was then sent to the emergency room for further admission. He has a multitude of medical problems, which include diabetes, hypertension, coronary artery disease. The patient recently had a cholecystectomy at [facility] in June 2019. The patient in the emergency room was found to have renal failure with a high potassium. He was admitted to Dr. Flores. At this point, I will await the evaluation by all the other consultants, and once he has been medically cleared, I will proceed with I and D of the abscess at this point. I had tentatively scheduled him for tomorrow, but given his renal failure and multiple medical problems, I will postpone the surgery and I will plan to proceed with incision and drainage of abscess on Thursday to allow time for the other consultants to evaluate the patient. I will keep the patient n.p.o. past midnight tomorrow. Thank you very much for the courtesy of this consultation. MD MORGAN Irvin/OSMIN /[id number]
[2019-10-26 23:02] VITALS: BP 180/97
[2019-10-26 23:14] VITALS: BP 180/97
--- NOTE | 2019-10-26 23:39 | NUR ---
Patient admit completed. Blood drawn to recheck K level after large BM. K=5.3. Called Dr Garcia to inform of K level. Phone failed to connect x3. Unable to reach Dr GARCIA. S/W Dr Rolanda Alicia. states if K level is down he can do procedure tomorrow at 11am. Will infor Dr Garcia if able to speak with him by phone. Will continue to attempt to call him. Patient BP elevated at 180/97. Hydralazine given as ordered PRN.
[2019-10-27] VITALS: BP 148/73
[2019-10-27] MEDS: HYDRALAZINE HCL 20 MG/ML VIAL IV PRN (00:03)
[2019-10-27] MEDS: SODIUM CHLORIDE 0.9% 1000ML 1,000 ML IV SCH ×3 (00:06→19:39)
[2019-10-27 04:00] VITALS: BP 110/53
--- NOTE | 2019-10-27 04:22 | NUR ---
Patient resting quitly with no c/o at this time. Continue monitor.
[2019-10-27 06:01] LABS: BASOPHILS # (AUTO) 0.1 (0.0-0.1); BASOPHILS % 0.5 % (0.0-1.0); EOSINOPHILS # (AUTO) 0.4 (0.0-0.4); EOSINOPHILS % 3.3 % (0.0-6.0); HEMATOCRIT 31.3 % (38.2-49.6); HEMOGLOBIN 10.2 g/dL (14.0-18.0); LYMPHOCYTES # (AUTO) 2.7 (1.0-3.2); LYMPHOCYTES % 25.5 % (18.0-39.1); MEAN CORPUSCULAR HEMOGLOBIN 28.8 pg (28-32); MEAN CORPUSCULAR HGB CONC 32.6 g/dL (31-35); MEAN CORPUSCULAR VOLUME 88.4 fL (81-99); MONOCYTES # (AUTO) 0.6 (0.2-0.8); MONOCYTES % 5.4 % (4.4-11.3); NEUTROPHILS # (AUTO) 6.6 (2.1-6.9); PLATELET COUNT 214 x10e3/uL (140-360); RED BLOOD COUNT 3.54 x10e6/uL (4.3-5.7); RED CELL DISTRIBUTION WIDTH 14.5 % (11.7-14.4)
[2019-10-27 06:23] LABS: ANION GAP 9.2 mmol/L (8-16); CALCIUM 9.4 mg/dL (8.4-10.2); CREATININE, SERUM 3.96 mg/dL (0.72-1.25); POTASSIUM 5.2 mmol/L (3.5-5.1)
[2019-10-27 08:00] VITALS: BP 154/71
[2019-10-27] MEDS ORDERED: CLINDAMYCIN 600MG / 50ML 50 ML IV ONE (08:00)
[2019-10-27] MEDS ORDERED: HYDROGEN PEROXIDE 120 ML BTL ONE (08:23)
[2019-10-27] MEDS ORDERED: LIDOCAINE 1% W/EPINEPHRINE 20 ML VIAL ONE (08:33)
--- NOTE | 2019-10-27 08:40 | NUR ---
pt off unit for procedure.
--- NOTE | 2019-10-27 09:48 | NUR ---
pt return from procedure, alert resp even and unlabored, no c/o pain when asked, call light in reach.
[2019-10-27 11:50] VITALS: BP 167/79
[2019-10-27] MEDS: NIFEDIPINE CR 30 MG TAB PO SCH (12:01)
[2019-10-27] MEDS: HYDRALAZINE HCL 10 MG TAB PO SCH ×2 (12:02→16:32)
[2019-10-27] MEDS ORDERED: LIDOCAINE HCL 2% LOCAL INJ 5 ML SDV VIAL INJ ONE (14:06)
[2019-10-27] MEDS ORDERED: PROPOFOL IV EMULSION 10 MG/ML 20 ML VIAL ONE (14:06)
[2019-10-27] MEDS ORDERED: FENTANYL CITRATE/PF 100MCG/2 ML INJ ONE (14:19)
[2019-10-27] MEDS ORDERED: MIDAZOLAM HCL 2 MG/2 ML VIAL ONE (14:19)
[2019-10-27 16:00] VITALS: BP 160/84
[2019-10-27] MEDS: SODIUM BICARBONATE 650 MG TAB PO SCH ×2 (16:32→20:42)
[2019-10-27] MEDS ORDERED: SOD POLYSTYRENE SULFONATE SUSP 15 GM/60 ML BTL PO NR (16:45)
--- NOTE | 2019-10-27 19:30 | NUR ---
walking rounds complete, report given to oncoming nurse.
[2019-10-27] MEDS: VANCOMYCIN 1GM/NS 250 ML 250 ML IV SCH (19:39)
[2019-10-27 20:00] VITALS: BP 154/75
--- NOTE | 2019-10-27 20:00 | NUR ---
Received change of shift report from AM nurse. Walking rounds completed.
--- NOTE | 2019-10-27 20:25 | Progress Note ---
DATE: 10/27/2019 Medicine Progress Note SUBJECTIVE: The patient underwent status post I and D of the posterior neck due to an abscess. He currently has some packing. He did well postprocedurally. PHYSICAL EXAMINATION: VITAL SIGNS: Temperature is 97, pulse 78, respiratory rate is 20, blood pressure is 160/84, and pulse ox 96% on room air. GENERAL: No acute distress. Alert and oriented x3. Cooperative on examination. HEENT: Head; normocephalic, atraumatic. Eyes; pupils are equal, round, and reactive to light bilaterally. Extraocular movements intact bilaterally. Throat; no evidence of erythema or exudates in the posterior pharynx. Has poor dentition. NECK: Supple. Good range of motion. PULMONARY: Clear to auscultation bilaterally. No wheezing, rales, or rhonchi. No crackles appreciated. CARDIOVASCULAR: Positive S1 and S2. No murmurs, rubs, or gallops appreciated. ABDOMEN: Soft, nondistended, and nontender to palpation. Bowel sounds present. MUSCULOSKELETAL: Strength is 5/5 throughout. No evidence of any muscle deficits on examination. No weakness appreciated. NEUROLOGIC: Cranial nerve 2 through 12 grossly intact. No evidence of any neurological deficits on exam. SKIN: Intact. Warm to touch. Good cap refill. PSYCHIATRIC: Normal affect and mood. EXTREMITIES: No edema. Good range of motion throughout. LABORATORY DATA: Shows white count is 10.4, hemoglobin 10.5, hematocrit 31.3, and platelets of 214. Coagulation: PT 13, INR 0.99, PTT 28. Chemistry: Sodium 136, potassium is 5.2, chloride 113, bicarb 19, anion gap of 9, BUN is 47, and creatinine is 3.96. His hemoglobin A1c is 10.5. His point of care glucose is 165. MICROBIOLOGY: Blood cultures, no growth today. Wound cultures are pending. IMAGING STUDIES: None. IMPRESSION: 1. Scalp abscess, status post I and D performed on 10/27/2019-white count down trending, follow wound cultures, ID following. General Surgery performed I and D today. Continue with IV antibiotics and pain control. 2. Type 2 diabetes-insulin sliding scale, Accu-Cheks, hemoglobin A1c was found to be 10.2 uncontrolled. 3. Hypertension-stable, continue same home medications, p.r.n. hydralazine. 4. Chronic kidney disease stage 5 with mild hyperkalemia-Nephrology has been consulted. He is on low-dose IV fluids. Kayexalate was given last night and Kayexalate has been given today. Get a.m. labs. Follow Nephrology recommendations. 5. Morbid obesity-diet and exercise discussed with patient. 6. Nutrition-diabetic. 7. PT/OT evaluation. 8. Hold anticoagulation for now due to underlying bleeding from the posterior neck from recent I and D, re-initiate tomorrow. 9. Consult with ID, Nephrology, General Surgery. Discharge planning: The patient will likely be here several more days until we are able to get the wound cultures. Once we were able to get that, he is doing much better, and he has been cleared by the consultants, the patient will be discharged home. MD KENYETTA Lipscomb/OSMIN /[id number]
[2019-10-27] MEDS: CEFEPIME 1GM/NS 0.9% 50 ML 50 ML IV SCH (20:42)
--- NOTE | 2019-10-27 21:11 | Consultation ---
DATE OF CONSULTATION: 10/27/2019 Consultation note. HISTORY OF PRESENT ILLNESS: The patient is a 64-year-old patient with longstanding history of diabetes, admitted with neck abscess, status post I and D. Clinic patient of ours, sees my associate, Dr. Mann for chronic kidney disease, stage 3 secondary to diabetes, diabetic nephropathy. He has underlying history of hypertension, increased BMI, hyperlipidemia and other comorbidities. Currently lying supine, dressing present back of his neck. Denies shortness of breath, nausea, vomiting, fever, or chills. ALLERGIES: NO APPARENT DRUG ALLERGIES. CURRENT MEDICATIONS: 1. Cefepime. 2. Hydralazine 25 b.i.d. 3. He is on IV fluid, normal saline 100 mL an hour. 4. Ondansetron p.r.n. 5. Tylenol p.r.n. 6. Nifedipine long-acting 30 mg daily. 7. Hydralazine p.r.n. 8. Melatonin 5 mg at bedtime. 9. Morphine p.r.n. SOCIAL HISTORY: Does not smoke or drink. FAMILY HISTORY: Significant for diabetes. LABORATORY DATA: Show sodium 136, potassium 5.2, chloride 113, bicarbonate 19, creatinine 3.96, hemoglobin 10.2, INR 0.99. LFTs noted. PHYSICAL EXAMINATION: GENERAL: Awake, alert, oriented x3, lying supine, in no apparent distress. VITAL SIGNS: With a blood pressure 129/68, pulse rate 94, afebrile, oxygen saturation 99% on room air. HEAD AND NECK: Cornea clear. Oral mucosa moist. LUNGS: Relatively clear. HEART: S1, S2 audible. ABDOMEN: Otherwise, soft, nontender. LOWER EXTREMITIES: No edema. IMPRESSION AND PLAN: 1. 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 Plan to give additional dose of Kayexalate. I will start sodium bicarbonate tablets. 2. He has underlying acute on chronic kidney failure, most likely worsening of kidney function and probably stage IV by now. Nevertheless, I will obtain clinic records. Discussed with daughter and patient potassium restricted diet. Avoidance of fruits and food rich in potassium discussed. No NSAIDs. Jay Jay Amador MD SAK/OSMIN /[id number]
[2019-10-28] VITALS (9 sets, daily range): BP systolic 140–190; BP diastolic 67–94
--- NOTE | 2019-10-28 | NUR ---
Patient resting quitly with no c/o at this time. Patient denies pain or discomfort. Neck incision intact and draining. Reinforce dressing.
--- NOTE | 2019-10-28 04:34 | NUR ---
Patient resting quitly at this time. Continue monitor.
[2019-10-28] MEDS: VANCOMYCIN 1GM/NS 250 ML 250 ML IV SCH (05:24)
[2019-10-28] MEDS: SODIUM CHLORIDE 0.9% 1000ML 1,000 ML IV SCH ×3 (05:25→22:00)
[2019-10-28 06:17] LABS: BASOPHILS # (AUTO) 0.1 (0.0-0.1); BASOPHILS % 0.5 % (0.0-1.0); EOSINOPHILS # (AUTO) 0.4 (0.0-0.4); EOSINOPHILS % 3.9 % (0.0-6.0); HEMATOCRIT 31.8 % (38.2-49.6); HEMOGLOBIN 10.4 g/dL (14.0-18.0); LYMPHOCYTES # (AUTO) 2.1 (1.0-3.2); LYMPHOCYTES % 21.9 % (18.0-39.1); MEAN CORPUSCULAR HEMOGLOBIN 29.3 pg (28-32); MEAN CORPUSCULAR HGB CONC 32.7 g/dL (31-35); MEAN CORPUSCULAR VOLUME 89.6 fL (81-99); MONOCYTES # (AUTO) 0.5 (0.2-0.8); MONOCYTES % 4.8 % (4.4-11.3); NEUTROPHILS # (AUTO) 6.4 (2.1-6.9); PLATELET COUNT 179 x10e3/uL (140-360); RED BLOOD COUNT 3.55 x10e6/uL (4.3-5.7); RED CELL DISTRIBUTION WIDTH 14.6 % (11.7-14.4)
[2019-10-28 06:47] LABS: ALBUMIN 2.4 g/dL (3.5-5.0); ALBUMIN/GLOBULIN RATIO 0.6 (0.8-2.0); ANION GAP 11.4 mmol/L (8-16); CALCIUM 9.3 mg/dL (8.4-10.2); CREATININE, SERUM 3.31 mg/dL (0.72-1.25); POTASSIUM 5.4 mmol/L (3.5-5.1)
--- NOTE | 2019-10-28 07:27 | Consultation ---
DATE OF CONSULTATION: 10/27/2019 CHIEF COMPLAINT: Cervical abscess. HISTORY OF PRESENT ILLNESS: This patient is a very pleasant 64-year-old who has history of diabetes mellitus, obesity, comes in with abscess on his neck, which he had for some time. The patient was admitted, underwent I and D. PAST SURGICAL HISTORY: Denies. PAST MEDICAL HISTORY: Diabetes mellitus, gout, and hypertension. ALLERGIES: NKA. SOCIAL HISTORY: There is no smoking, drug abuse, or alcohol abuse. FAMILY HISTORY: Otherwise noncontributory. PHYSICAL EXAMINATION: GENERAL: Currently alert and oriented. Does not seem to be in acute distress. VITAL SIGNS: Stable, currently afebrile. HEENT: Not icteric. NECK: Supple. Status post I and D. CHEST: Clear. HEART: S1, S2. ABDOMEN: Soft. IMPRESSION AND PLAN: Neck abscess. Obtain wound cultures. We will put on vancomycin and cefepime. Follow levels. May need to be on long-term antibiotic. We will see how he is going to do in the next few days. Continue management as ordered. We will follow. MD CARMENZA Capellan/OSMIN /[id number]
[2019-10-28] MEDS: SODIUM BICARBONATE 650 MG TAB PO SCH ×3 (08:44→22:38)
[2019-10-28] MEDS: HYDRALAZINE HCL 10 MG TAB PO SCH ×2 (08:44→17:00)
[2019-10-28] MEDS: NIFEDIPINE CR 30 MG TAB PO SCH ×2 (08:44→17:00)
[2019-10-28] MEDS ORDERED: LINEZOLID 600 MG/D5W 300ML 300 ML IV SCH (10:30)
[2019-10-28] MEDS: HYDRALAZINE HCL 20 MG/ML VIAL IV PRN ×2 (11:42→22:50)
[2019-10-28] MEDS: LINEZOLID 600 MG/D5W 300ML 300 ML IV SCH ×2 (11:45→22:38)
[2019-10-28] MEDS ORDERED: LACTULOSE SYRUP 20 GM/30 ML UDC PO NR (15:00)
[2019-10-28] MEDS ORDERED: SOD POLYSTYRENE SULFONATE SUSP 15 GM/60 ML BTL PO NR (15:00)
[2019-10-28] MEDS ORDERED: SOD POLYSTYRENE SULFONATE SUSP 15 GM/60 ML BTL PO SCH (18:30)
--- NOTE | 2019-10-28 19:10 | Progress Note ---
DATE: 10/28/2019 Medicine Progress Note SUBJECTIVE: The patient reports doing much better today. He had local packing and wound care on the posterior aspect of his neck. General Surgery is following closely. Wound culture consistent with Staphylococcus awaiting for if it is MRSA versus MSSA. PHYSICAL EXAMINATION: VITAL SIGNS: Temperature is 97.5, pulse is 94, respiratory rate is 20, blood pressure 141/67, and pulse ox is 96% on room air. GENERAL: Not in acute distress. Alert and oriented x3. Cooperative on examination. HEENT: Head; normocephalic, atraumatic. Eyes; pupils are equal, round, and reactive to light bilaterally. Extraocular movements intact bilaterally. Throat; no evidence of erythema or exudates in the posterior pharynx. Has poor dentition. NECK: Supple. Good range of motion. PULMONARY: Clear to auscultation bilaterally. No wheezing, no rales, no rhonchi, no crackles appreciated. CARDIOVASCULAR: Positive S1 and S2. No murmurs, rubs, or gallops appreciated. ABDOMEN: Soft, nondistended, and nontender to palpation. Bowel sounds present. MUSCULOSKELETAL: Strength is 5/5 throughout. No evidence of any muscle deficits on examination. No weakness appreciated. NEUROLOGIC: Cranial nerves 2 through 12 grossly intact. No evidence of any neurological deficits on exam. SKIN: He has a posterior neck packing from incision and drainage performed by General Surgery. PSYCHIATRIC: Normal affect and mood. EXTREMITIES: No edema. Good range of motion throughout. LABORATORY FINDINGS: Show white count 9.5, hemoglobin 10.4, hematocrit is 32, and platelets of 179. Coagulation; PT 13, INR 0.99, and PTT 28. Chemistry; sodium is 135, potassium 5.4, chloride 110, bicarb 19, anion gap of 11, BUN is 40, and creatinine is 3.31. LFTs within normal range. Albumin is 2.4. Vancomycin trough is pending. MICROBIOLOGY: Blood cultures no growth. Wound culture shows Staphylococcus aureus, pending final growth. IMAGING STUDIES: None. IMPRESSION: 1. Right scalp abscess, status post I and D performed on 10/27/2019-white count downtrending, improving. Awaiting for wound culture growth, so far shows Staphylococcus aureus, but I am not sure if it is methicillin-resistant Staphylococcus aureus versus methicillin-sensitive Staphylococcus aureus. ID is following. Continue with IV antibiotics. General Surgery is following as well. Continue with pain control. As for his type 2 diabetes. Continue with insulin sliding scale, Accu-Cheks, and long-acting insulin. Hemoglobin A1c was found to be 10.2. 2. Hypertension-stable, continue same home medications, p.r.n. hydralazine. 3. Chronic kidney disease, stage 5 with mild hyperkalemia-Kayexalate was given this morning. We also given additional dose of Kayexalate now, as he has not had any bowel movements. Get a.m. labs. Nephrology is consulted and following very closely. The patient does not need any renal replacement therapy at this time. 4. Morbid obesity-diet and exercise discussed with the patient. 5. Nutrition-diabetic. 6. PT/OT evaluation. 7. Put on heparin 5,000 units subcutaneous b.i.d. for deep venous thrombosis prophylaxis. 8. Consultants: ID, Nephrology, and General Surgery. 9. Discharge planning: The patient will likely be here several more days, awaiting for wound cultures. Also, need final recommendation by General Surgery in term of his packing, because I am sure if the family is be able to perform any of the wound dressing changes for this patient, may need home health arranged as well, but due to the recent outbreak of COVID-19, I am not sure if home health is available to provide any services at this time. We will continue to follow closely. MD KENYETTA Lipscomb/OSMIN /[id number]
--- NOTE | 2019-10-28 19:33 | NUR ---
report given to oncoming nurse , walking rounds complete.
--- NOTE | 2019-10-28 20:45 | NUR ---
PATIENT IS RESTING IN BED AOX4, NO SIGNS OF DISTRESS NOTED. DAUGHTER IS AT BEDSIDE AND PATIENT VOICES NO PAIN AT THIS TIME. NEW IV STARTED ON RIGHT HAND AFTER PATIENT VOICED DISCOMFORT FROM PREVIOUS SITE. IV FLUIDS ARE PATENT AND RUNNING AND NECK INCISION IS SUPPORTED BY DRESSING IS CLEAN DRY AND INTACT, WILL REINFORCE ORDERED. BED IS IN LOWEST POSITION, BOTH SIDE RAILS ARE UP, CALL LIGHT IS WITHIN REACH, WILL CONTINUE TO MONITOR.
[2019-10-29] VITALS: BP 148/68
[2019-10-29 04:00] VITALS: BP 141/70
[2019-10-29 07:29] LABS: BASOPHILS % 0.4 % (0.0-1.0); EOSINOPHILS # (AUTO) 0.3 (0.0-0.4); EOSINOPHILS % 3.6 % (0.0-6.0); HEMATOCRIT 33.4 % (38.2-49.6); HEMOGLOBIN 10.8 g/dL (14.0-18.0); LYMPHOCYTES # (AUTO) 2.1 (1.0-3.2); LYMPHOCYTES % 23.4 % (18.0-39.1); MEAN CORPUSCULAR HEMOGLOBIN 28.8 pg (28-32); MEAN CORPUSCULAR HGB CONC 32.3 g/dL (31-35); MEAN CORPUSCULAR VOLUME 89.1 fL (81-99); MONOCYTES # (AUTO) 0.5 (0.2-0.8); MONOCYTES % 5.7 % (4.4-11.3); NEUTROPHILS # (AUTO) 5.9 (2.1-6.9); NEUTROPHILS % 65.8 % (38.7-80.0); PLATELET COUNT 223 x10e3/uL (140-360); RED BLOOD COUNT 3.75 x10e6/uL (4.3-5.7); RED CELL DISTRIBUTION WIDTH 14.6 % (11.7-14.4)
[2019-10-29 07:48] VITALS: BP 132/69
[2019-10-29 07:50] LABS: ANION GAP 10.8 mmol/L (8-16); CALCIUM 9.7 mg/dL (8.4-10.2); CREATININE, SERUM 3.17 mg/dL (0.72-1.25); POTASSIUM 4.8 mmol/L (3.5-5.1)
[2019-10-29] MEDS: SODIUM CHLORIDE 0.9% 1000ML 1,000 ML IV SCH (08:00)
[2019-10-29 08:51] VITALS: BP 132/69
[2019-10-29] MEDS: NIFEDIPINE CR 30 MG TAB PO SCH ×2 (09:45→16:00)
[2019-10-29] MEDS: HYDRALAZINE HCL 10 MG TAB PO SCH ×2 (09:45→16:00)
[2019-10-29] MEDS: SODIUM BICARBONATE 650 MG TAB PO SCH ×2 (09:45→16:00)
[2019-10-29 11:32] VITALS: BP 167/88
[2019-10-29] MEDS: LINEZOLID 600 MG/D5W 300ML 300 ML IV SCH (12:10)
[2019-10-29 15:59] VITALS: BP 135/77
[2019-10-29] MEDS ORDERED: DEXTROSE 50% SYRINGE 50 ML IV PRN (17:45)
--- NOTE | 2019-10-29 18:53 | Discharge Summary ---
FINAL DISCHARGE DIAGNOSES: 1. Right posterior neck abscess, status post incision and drainage performed on 10/27/2019, shows MSSA. 2. Hypertension. 3. Chronic kidney disease, stage 5 with mild hyperkalemia-improved potassium. 4. Morbidly obese. 5. Type 2 diabetes. CONSULTANTS: 1. Infectious Disease. 2. Nephrology. 3. General Surgery. PHYSICAL EXAMINATION: VITAL SIGNS: Temperature is 97.3, pulse 85, respiratory rate is 19, blood pressure 135/77, and pulse ox 98% on room air. LABORATORY FINDINGS: Show white count 8.9, hemoglobin 10.8, hematocrit 33, and platelets of 223. Coagulation; PT 13, INR 0.99, and PTT 28. Chemistry; sodium 136, potassium 4.8, chloride 110, bicarb 20, anion gap of 10, BUN 35, creatinine is 3.17, glucose is 152, calcium is 9.7, hemoglobin A1c 10.2, total bilirubin is 0.4, AST is 26, ALT is 25, and albumin is 2.4. MICROBIOLOGY: Blood cultures no growth. Wound cultures from the I and D show Staphylococcus aureus, MSSA. IMAGING STUDIES: Chest x-ray, no evidence for acute disease, stable borderline heart size. HOSPITAL COURSE: A 64-year-old male, morbidly obese, has uncontrolled type 2 diabetes, was sent in by his general surgeon due to having a right posterior neck abscess, needing incision and drainage. The patient was admitted and Dr. Brady Garcia was consulted. The patient underwent I and D on 10/27/2019 by General Surgery. The patient had local wound care and packing by General Surgery. ID was consulted. Blood cultures were negative. Wound culture showed MSSA. The patient maintained on IV antibiotics. He was discharged on oral doxycycline 100 mg twice daily for 14 days as per ID recommendations. His diabetes was well managed and controlled while here in the hospital stay and he has very close followup as an outpatient with his primary care physician. Blood pressure was stable. In relation to his CKD stage 5 with mild hyperkalemia, Nephrology was consulted. The patient received several treatments for his potassium elevation. On discharge, his potassium was 4.8, stable. The patient was educated about no potassium diet. He is to follow up with Nephrology in 1 week's time. Diet and exercise discussed with the patient about his morbid obesity. The patient has been cleared for discharge by General Surgery, ID, and Nephrology. On the day of discharge, vital signs were stable, labs reviewed and stable. The patient seen and evaluated, and examined thoroughly on the day of discharge. No other complaints. The patient verbalized understanding and agrees to plan of care to follow up accordingly as an outpatient with primary care physician in 1 week and rest of the consultants described above in about 1 week's time. Follow up with General Surgery next and follow up with ID in 1 week's time. The patient will be provided wound care packing and gauze and they were educated by General Surgery about how to do the packing. Antibiotics were provided to the patient upon discharge. MEDICATIONS: See med reconciliation form. DISPOSITION: Home. CONDITION: Stable. DIET: Heart-healthy diet. In the event of any worsening symptoms, the patient advised to come back to the ED for further evaluation. Discharge summary took greater than 35 minutes. MD KENYETTA Lipscomb/OSMIN /[id number]
--- NOTE | 2019-10-29 19:20 | NUR ---
REPORT GIVEN TO ROXANNE JACOBSEN. PT AAOX3. ACYANOTIC. RESTING IN CHAIR USING CELLULAR DEVICE. NO DISTRESS NOTED. DAUGHTER PRESENT AT BEDSIDE.
--- NOTE | 2019-10-29 19:38 | NUR ---
PERIPHERAL IV DISCONTINUED AT 1928. CATHETER TIP INTACT. NO DISTRESS NOTED. BLEEDING CONTROLLED. 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
[2019-10-29] MEDS ORDERED: INSULIN LISPRO 100 UNIT/1 ML 3ML VIAL SQ SCH (21:00)
--- NOTE | 2019-11-07 05:53 | Operative Report ---
DATE OF PROCEDURE: 10/27/2019 SURGEON: Brady Garcia MD PREOPERATIVE DIAGNOSES: 1. Nuchal abscess. 2. Diabetes mellitus. POSTOPERATIVE DIAGNOSES: 1. Nuchal abscess. 2. Diabetes mellitus. PROCEDURE PERFORMED: Incision and drainage of nuchal abscess. ANESTHESIA: General. ESTIMATED BLOOD LOSS: Minimal. DRAINS: None. COMPLICATIONS: None. INDICATION AND FINDINGS: The patient is an obese,diabetic 64-year-old male, admitted with an abscess of the nuchal area. INTRAOPERATIVE FINDINGS: Abscess, nuchal area. DESCRIPTION OF PROCEDURE: With the patient lying on the operative table in the supine position after administration of general endotracheal anesthesia, he was placed in the right lateral decubitus position. The nuchal area was exposed. It was shaved and then prepped and draped. After time-out was performed, an incision was made along the midline of the main abscess and then the cavity entered, loculations broken down. Cultures and sensitivities were taken. Two counter incision were made superior and inferior to the midline incision and interconnected with a [place] drain. The cavity flushed with saline solution and then the drains connected to each other with 3-0 silk. The main wound was loosely closed using 3-0 silk. Sterile dressing was applied. The patient tolerated the procedure well, was taken to the recovery room in stable condition. MD MORGAN Irvin/MODL /[id number]
== END 2019-10-29 19:45 | disposition home or self-care (01) | DRG 580 ==
LOC: ER 16:37 → ERHOLD 17:09 → MED/SURG3 21:10 → OBSVTOIN 10-27 09:21
PROVIDERS: ADMIT Internal Medicine; ATTEND Internal Medicine
PROC: 0J940ZZ Drainage of Right Neck Subcutaneous Tissue and Fascia, Open Approach (ICD-10-PCS; principal; 2019-10-27 11:30)
DX: L02.811 Cutaneous abscess of head [any part, except face] (principal); Z68.41 Body mass index [BMI] 40.0-44.9, adult; I12.0 Hypertensive chronic kidney disease with stage 5 chronic kidney disease or end stage renal disease; N18.5 Chronic kidney disease, stage 5; N17.9 Acute kidney failure, unspecified; E66.01 Morbid (severe) obesity due to excess calories; E11.22 Type 2 diabetes mellitus with diabetic chronic kidney disease; Z79.4 Long term (current) use of insulin; E87.5 Hyperkalemia; E11.65 Type 2 diabetes mellitus with hyperglycemia
CPT/HCPCS: 36415; 71045; 80048; 80053; 80202; 82948; 83036; 84132; 85025; 85610; 85730; 87040; 87071; 87075; 87186; 87205; 93005; 96374; 96375; 99284; G0378; J0360; J0692; J1817; J2001; J2020; J2250; J2543; J3010; J3370; J7030; J7040; J7799

== ENCOUNTER → 2021-02-13 | Day surgery (SDC) | payer OTHER, MEDICARE ==
[2021-02-08 10:07] LABS: BASOPHILS # (AUTO) 0.1 (0.0-0.1); BASOPHILS % 0.8 % (0.0-1.0); EOSINOPHILS # (AUTO) 0.9 (0.0-0.4); EOSINOPHILS % 9.2 % (0.0-6.0); HEMATOCRIT 35.8 % (38.2-49.6); HEMOGLOBIN 11.7 g/dL (14.0-18.0); LYMPHOCYTES # (AUTO) 2.8 (1.0-3.2); LYMPHOCYTES % 27.8 % (18.0-39.1); MEAN CORPUSCULAR HEMOGLOBIN 32.8 pg (28-32); MEAN CORPUSCULAR HGB CONC 32.7 g/dL (31-35); MEAN CORPUSCULAR VOLUME 100.3 fL (81-99); MONOCYTES # (AUTO) 0.8 (0.2-0.8); MONOCYTES % 8.3 % (4.4-11.3); NEUTROPHILS # (AUTO) 5.4 (2.1-6.9); NEUTROPHILS % 53.6 % (38.7-80.0); PLATELET COUNT 144 x10e3/uL (140-360); RED BLOOD COUNT 3.57 x10e6/uL (4.3-5.7); RED CELL DISTRIBUTION WIDTH 13.1 % (11.7-14.4)
[2021-02-08 10:25] LABS: ALBUMIN 3.8 g/dL (3.5-5.0); ANION GAP 18.7 mmol/L (8-16); CALCIUM 9.4 mg/dL (8.4-10.2); CHOL/HDL RATIO 4.4 (3.9-4.7); CREATININE, SERUM 8.12 mg/dL (0.72-1.25); POTASSIUM 4.7 mmol/L (3.5-5.1)
[2021-02-08 10:37] LABS: INR 1.03; PROTHROMBIN TIME 14.1 seconds (11.9-14.5)
[2021-02-08 10:40] LABS: PARTIAL THROMBOPLASTIN TIME 26.4 seconds (23.8-35.5)
[~2021-02-13] VITALS: Ht 165.1 cm; Wt 117.9 kg
[2021-02-13] VITALS (17 sets, daily range): BP systolic 107–153; BP diastolic 45–91
[~2021-02-13] MED LIST changes: +ASPIRIN 325 MG TAB ONE; +ATORVASTATIN CA20 MG PO; +CLOPIDOGREL BISULFATE 75 MG TAB ONE; +DOCUSATE SODIU100 MG PO; +FENTANYL CITRATE/PF 100MCG/2 ML INJ ONE; +HEPARIN SOD/SOD CHLORIDE 2,000 ML ONE; +IOPAMIDOL 370 MG/ML 200 ML INFUS..BTL INJ ONE; +LIDOCAINE HCL 2% LOCAL 20 ML VIAL ONE; +LISINOPRIL2.5 MG PO; +MIDAZOLAM HCL 2 MG/2 ML VIAL ONE; +RENVELA0.8 GM PO; +SODIUM BICARBO650 MG PO; +SODIUM CHLORIDE 0.9% 1000ML 1,000 ML ONE; +VANCOMYCIN HCL1 GM IV; +VERAPAMIL HCL 2.5 MG/ML 2 ML VIAL ONE
== END | disposition home or self-care (01) ==
LOC: CATH LAB 06:32
PROVIDERS: ATTEND Internal Medicine Cardiovascular Disease
DX: I25.110 Atherosclerotic heart disease of native coronary artery with unstable angina pectoris (principal); R94.39 Abnormal result of other cardiovascular function study; Z01.812 Encounter for preprocedural laboratory examination
CPT/HCPCS: 93458; C9600; 36415; 76937; 80053; 80061; 85025; 85610; 85730; 92928; 99152; 99153; C1725; C1760; C1769; C1874; J2001; J2250; J3010; J7030; Q9967

== ENCOUNTER 2021-02-24 14:13 | Inpatient (IN) | payer OTHER, MEDICARE ==
[~2021-02-24] VITALS: Ht 165.1 cm; Wt 113.4 kg
[~2021-02-24 14:13] MED LIST changes: -ASPIRIN 325 MG TAB ONE; -CLOPIDOGREL BISULFATE 75 MG TAB ONE; -FENTANYL CITRATE/PF 100MCG/2 ML INJ ONE; -HEPARIN SOD/SOD CHLORIDE 2,000 ML ONE; -IOPAMIDOL 370 MG/ML 200 ML INFUS..BTL INJ ONE; -LIDOCAINE HCL 2% LOCAL 20 ML VIAL ONE; -MIDAZOLAM HCL 2 MG/2 ML VIAL ONE; -SODIUM CHLORIDE 0.9% 1000ML 1,000 ML ONE; -VANCOMYCIN HCL1 GM IV; -VERAPAMIL HCL 2.5 MG/ML 2 ML VIAL ONE
[2021-02-24] MEDS ORDERED: MORPHINE SULFATE INJ 4 MG/ML INJ 1ML IV STA (14:38)
[2021-02-24] MEDS ORDERED: ONDANSETRON HCL INJ 2MG/ML 2ML 2 MG/ML VIAL IV STA (14:38)
[2021-02-24 14:56] LABS: BASOPHILS % 0.1 % (0.0-1.0); EOSINOPHILS % 0.1 % (0.0-6.0); HEMATOCRIT 34.6 % (38.2-49.6); HEMOGLOBIN 11.4 g/dL (14.0-18.0); LYMPHOCYTES # (AUTO) 0.7 (1.0-3.2); LYMPHOCYTES % 7.9 % (18.0-39.1); MEAN CORPUSCULAR HEMOGLOBIN 31.9 pg (28-32); MEAN CORPUSCULAR HGB CONC 32.9 g/dL (31-35); MEAN CORPUSCULAR VOLUME 96.9 fL (81-99); MONOCYTES # (AUTO) 0.7 (0.2-0.8); MONOCYTES % 8.5 % (4.4-11.3); PLATELET COUNT 218 x10e3/uL (140-360); RED BLOOD COUNT 3.57 x10e6/uL (4.3-5.7); RED CELL DISTRIBUTION WIDTH 13.1 % (11.7-14.4)
[2021-02-24 15:10] LABS: INR 1.03; PROTHROMBIN TIME 14.1 seconds (11.9-14.5)
[2021-02-24 15:11] LABS: PARTIAL THROMBOPLASTIN TIME 30.6 seconds (23.8-35.5)
[2021-02-24] MEDS ORDERED: METHYLPREDNISOLONE SOD SUCC 125 MG/2ML VIAL IV STA (15:22)
[2021-02-24 15:23] LABS: ALBUMIN 2.6 g/dL (3.5-5.0); ALBUMIN/GLOBULIN RATIO 0.5 (0.8-2.0); ANION GAP 22.1 mmol/L (8-16); CALCIUM 9.6 mg/dL (8.4-10.2); CREATININE, SERUM 8.95 mg/dL (0.72-1.25); MAGNESIUM 2.1 MG/DL (1.3-2.1); POTASSIUM 4.1 mmol/L (3.5-5.1)
[2021-02-24 15:29] LABS: CREATINE KINASE MB 1.6 ng/mL (0-5.0)
[2021-02-24 15:45] LABS: ERYTHROCYTE SEDIMENTATION RATE 93 mm/hr (0-13)
[2021-02-24] MEDS ORDERED: Vancomycin IV 1 GM in SODIUM CHLORIDE 0.9% 250ML 250 ML IV ONE (17:30)
[2021-02-24] MEDS ORDERED: DEXTROSE 50% SYRINGE 50 ML IV PRN (17:45)
[2021-02-24] MEDS ORDERED: ONDANSETRON HCL INJ 2MG/ML 2ML 2 MG/ML VIAL IV PRN (17:45)
[2021-02-24] MEDS ORDERED: FAMOTIDINE 20 MG/2 ML VIAL IV SCH (17:45)
[2021-02-24] MEDS: PIPERACILLIN/TAZOBACTAM 2.25 GM in SODIUM CHLORIDE 0.9% 50ML 50 ML IV SCH (17:55)
[2021-02-24 20:30] VITALS: BP 134/67
[2021-02-24 20:53] VITALS: BP 134/67
[2021-02-24] MEDS: MORPHINE SULFATE INJ 4 MG/ML INJ 1ML IV PRN (21:01)
[2021-02-24] MEDS: INSULIN LISPRO 100 UNIT/1 ML 3ML VIAL SQ SCH (21:02)
[2021-02-24 23:18] LABS: CREATINE KINASE MB 1.5 ng/mL (0-5.0)
[2021-02-25] VITALS (8 sets, daily range): BP systolic 112–141; BP diastolic 58–77
[2021-02-25] MEDS ORDERED: SODIUM CHLORIDE 0.9% 250ML 250 ML ONE ×2 (04:24→14:29)
[2021-02-25] MEDS: PIPERACILLIN/TAZOBACTAM 2.25 GM in SODIUM CHLORIDE 0.9% 50ML 50 ML IV SCH ×2 (04:45→17:00)
[2021-02-25 05:18] LABS: HEMATOCRIT 32.5 % (38.2-49.6); HEMOGLOBIN 10.6 g/dL (14.0-18.0); LYMPHOCYTES # (AUTO) 0.7 (1.0-3.2); LYMPHOCYTES % 9.8 % (18.0-39.1); MEAN CORPUSCULAR HEMOGLOBIN 31.9 pg (28-32); MEAN CORPUSCULAR HGB CONC 32.6 g/dL (31-35); MEAN CORPUSCULAR VOLUME 97.9 fL (81-99); MONOCYTES # (AUTO) 0.2 (0.2-0.8); MONOCYTES % 2.8 % (4.4-11.3); NEUTROPHILS % 87.1 % (38.7-80.0); PLATELET COUNT 182 x10e3/uL (140-360); RED BLOOD COUNT 3.32 x10e6/uL (4.3-5.7); RED CELL DISTRIBUTION WIDTH 13.1 % (11.7-14.4)
[2021-02-25 05:56] LABS: ALBUMIN 2.2 g/dL (3.5-5.0); ALBUMIN/GLOBULIN RATIO 0.5 (0.8-2.0); ANION GAP 19.2 mmol/L (8-16); CALCIUM 9.3 mg/dL (8.4-10.2); CHOL/HDL RATIO 9.8 (3.9-4.7); CREATININE, SERUM 9.91 mg/dL (0.72-1.25); POTASSIUM 5.2 mmol/L (3.5-5.1)
[2021-02-25 06:31] LABS: CREATINE KINASE MB 1.5 ng/mL (0-5.0)
[2021-02-25] MEDS: INSULIN LISPRO 100 UNIT/1 ML 3ML VIAL SQ SCH ×4 (07:30→22:04)
[2021-02-25] MEDS ORDERED: INSULIN GLARGINE 100 UNITS/ML VIAL SQ ONE (10:15)
[2021-02-25] MEDS: SEVELAMER CARBONATE 800 MG TAB PO SCH ×2 (11:30→16:30)
[2021-02-25] MEDS: CLOPIDOGREL BISULFATE 75 MG TAB PO SCH (12:32)
[2021-02-25] MEDS ORDERED: SOD POLYSTYRENE SULFONATE SUSP 15 GM/60 ML BTL PO ONE (12:45)
[2021-02-25 15:15] LABS: CREATINE KINASE MB 1.1 ng/mL (0-5.0)
[2021-02-25] MEDS: SODIUM BICARBONATE 650 MG TAB PO SCH (16:59)
[2021-02-25] MEDS: ALLOPURINOL 100 MG TAB PO SCH (17:00)
[2021-02-25] MEDS: HYDRALAZINE HCL 25 MG TAB PO SCH (17:00)
[2021-02-25] MEDS: MORPHINE SULFATE INJ 4 MG/ML INJ 1ML IV PRN (17:17)
[2021-02-25] MEDS ORDERED: LACTULOSE SYRUP 20 GM/30 ML UDC PO ONE (17:45)
[2021-02-25] MEDS: ATORVASTATIN 40 MG TAB PO SCH (21:22)
[2021-02-26] VITALS (9 sets, daily range): BP systolic 107–135; BP diastolic 45–84
[2021-02-26 05:28] LABS: ANION GAP 23.4 mmol/L (8-16); CALCIUM 8.9 mg/dL (8.4-10.2); CREATININE, SERUM 11.65 mg/dL (0.72-1.25); POTASSIUM 4.4 mmol/L (3.5-5.1)
[2021-02-26] MEDS: PIPERACILLIN/TAZOBACTAM 2.25 GM in SODIUM CHLORIDE 0.9% 50ML 50 ML IV SCH ×2 (06:32→17:00)
[2021-02-26] MEDS: SEVELAMER CARBONATE 800 MG TAB PO SCH ×3 (08:03→17:08)
[2021-02-26] MEDS: CLOPIDOGREL BISULFATE 75 MG TAB PO SCH (08:04)
[2021-02-26] MEDS: SODIUM BICARBONATE 650 MG TAB PO SCH ×2 (08:04→17:09)
[2021-02-26] MEDS: SITAGLIPTIN 100 MG TAB PO SCH (08:04)
[2021-02-26] MEDS: DOCUSATE SODIUM 100 MG CAP PO SCH (08:04)
[2021-02-26] MEDS: ALLOPURINOL 100 MG TAB PO SCH ×2 (08:04→17:09)
[2021-02-26] MEDS: ASPIRIN 81 MG ENTERIC COATED PO SCH (08:04)
[2021-02-26] MEDS: INSULIN LISPRO 100 UNIT/1 ML 3ML VIAL SQ SCH ×4 (08:30→21:00)
[2021-02-26] MEDS: HYDRALAZINE HCL 25 MG TAB PO SCH ×2 (09:00→17:09)
[2021-02-26] MEDS ORDERED: ASPIRIN 325 MG TAB PO SCH (09:00)
[2021-02-26] MEDS ORDERED: SODIUM CHLORIDE 0.9% 1000ML 2,000 ML ONE (09:45)
[2021-02-26] MEDS: MORPHINE SULFATE INJ 4 MG/ML INJ 1ML IV PRN (15:31)
[2021-02-26] MEDS: HYDROCODONE/APAP 7.5MG-325MG 1 EA TAB PO PRN ×3 (16:30→22:57)
[2021-02-26] MEDS: LISINOPRIL 2.5 MG TAB PO SCH (17:08)
[2021-02-26] MEDS: PREDNISONE 20 MG TAB PO SCH (17:09)
[2021-02-26] MEDS: Vancomycin IV 1 GM in SODIUM CHLORIDE 0.9% 250ML 250 ML IV SCH (17:40)
[2021-02-26] MEDS ORDERED: SODIUM CHLORIDE 0.9% 50ML 50 ML ONE (18:22)
[2021-02-26] MEDS ORDERED: IOPAMIDOL 370 MG/ML 200 ML INFUS..BTL INJ ONE (18:23)
[2021-02-26] MEDS: ATORVASTATIN 40 MG TAB PO SCH (21:13)
[2021-02-27] MEDS: PIPERACILLIN/TAZOBACTAM 2.25 GM in SODIUM CHLORIDE 0.9% 50ML 50 ML IV SCH (04:48)
[2021-02-27 05:27] VITALS: BP 124/49
[2021-02-27 07:48] VITALS: BP 135/66
[2021-02-27 07:56] VITALS: BP 135/66
[2021-02-27] MEDS: ASPIRIN 81 MG ENTERIC COATED PO SCH (08:18)
[2021-02-27] MEDS: DOCUSATE SODIUM 100 MG CAP PO SCH (08:18)
[2021-02-27] MEDS: CLOPIDOGREL BISULFATE 75 MG TAB PO SCH (08:18)
[2021-02-27] MEDS: INSULIN LISPRO 100 UNIT/1 ML 3ML VIAL SQ SCH ×5 (08:18→21:55)
[2021-02-27] MEDS: SITAGLIPTIN 100 MG TAB PO SCH (08:18)
[2021-02-27] MEDS: PREDNISONE 20 MG TAB PO SCH ×2 (08:18→17:17)
[2021-02-27] MEDS: HYDRALAZINE HCL 25 MG TAB PO SCH ×2 (08:18→17:17)
[2021-02-27] MEDS: SEVELAMER CARBONATE 800 MG TAB PO SCH ×3 (08:18→17:17)
[2021-02-27] MEDS: LISINOPRIL 2.5 MG TAB PO SCH (08:19)
[2021-02-27] MEDS: ALLOPURINOL 100 MG TAB PO SCH ×2 (08:19→17:17)
[2021-02-27] MEDS: SODIUM BICARBONATE 650 MG TAB PO SCH ×2 (08:19→17:17)
[2021-02-27 11:55] VITALS: BP 148/50
[2021-02-27 15:56] VITALS: BP 139/66
[2021-02-27] MEDS: HYDROCODONE/APAP 7.5MG-325MG 1 EA TAB PO PRN ×2 (17:18→23:30)
[2021-02-27] MEDS ORDERED: VANCOMYCIN HCL1 GM IV (19:34)
[2021-02-27 20:00] VITALS: BP 144/67
[2021-02-27] MEDS: ATORVASTATIN 40 MG TAB PO SCH (20:31)
[2021-02-28] VITALS (8 sets, daily range): BP systolic 97–155; BP diastolic 62–88
[2021-02-28] MEDS: SODIUM BICARBONATE 650 MG TAB PO SCH ×2 (08:39→17:18)
[2021-02-28] MEDS: ALLOPURINOL 100 MG TAB PO SCH ×2 (08:40→17:18)
[2021-02-28] MEDS: CLOPIDOGREL BISULFATE 75 MG TAB PO SCH (08:40)
[2021-02-28] MEDS: SEVELAMER CARBONATE 800 MG TAB PO SCH ×3 (08:41→17:19)
[2021-02-28] MEDS: SITAGLIPTIN 100 MG TAB PO SCH (08:42)
[2021-02-28] MEDS: PREDNISONE 20 MG TAB PO SCH ×2 (08:42→17:18)
[2021-02-28] MEDS: DOCUSATE SODIUM 100 MG CAP PO SCH (08:42)
[2021-02-28] MEDS: ASPIRIN 81 MG ENTERIC COATED PO SCH (08:47)
[2021-02-28] MEDS: LISINOPRIL 2.5 MG TAB PO SCH (08:47)
[2021-02-28] MEDS: HYDRALAZINE HCL 25 MG TAB PO SCH ×2 (08:47→17:18)
[2021-02-28] MEDS: INSULIN LISPRO 100 UNIT/1 ML 3ML VIAL SQ SCH ×3 (08:48→17:35)
[2021-02-28] MEDS ORDERED: SODIUM CHLORIDE 0.9% 1000ML 2,000 ML ONE (10:52)
[2021-02-28] MEDS: Vancomycin IV 1 GM in SODIUM CHLORIDE 0.9% 250ML 250 ML IV SCH (17:19)
== END 2021-02-28 20:11 | disposition home or self-care (01) | DRG 871 ==
LOC: ER 14:53 → ERHOLD 17:37 → MED/SURG3 20:14
PROVIDERS: ADMIT Internal Medicine; ATTEND Internal Medicine
PROC: 5A1D70Z Performance of Urinary Filtration, Intermittent, Less than 6 Hours Per Day (ICD-10-PCS; principal; 2021-02-26)
DX: A41.01 Sepsis due to Methicillin susceptible Staphylococcus aureus (principal); N18.6 End stage renal disease; L03.115 Cellulitis of right lower limb; Z68.41 Body mass index [BMI] 40.0-44.9, adult; I13.11 Hypertensive heart and chronic kidney disease without heart failure, with stage 5 chronic kidney disease, or end stage renal disease; Z20.822 Contact with and (suspected) exposure to COVID-19; E11.22 Type 2 diabetes mellitus with diabetic chronic kidney disease; Z99.2 Dependence on renal dialysis; Z79.899 Other long term (current) drug therapy; M10.9 Gout, unspecified; E11.51 Type 2 diabetes mellitus with diabetic peripheral angiopathy without gangrene; I25.10 Atherosclerotic heart disease of native coronary artery without angina pectoris; Z95.5 Presence of coronary angioplasty implant and graft; E66.01 Morbid (severe) obesity due to excess calories; E11.319 Type 2 diabetes mellitus with unspecified diabetic retinopathy without macular edema; E87.5 Hyperkalemia; D64.9 Anemia, unspecified; E78.5 Hyperlipidemia, unspecified; M19.071 Primary osteoarthritis, right ankle and foot
CPT/HCPCS: 36415; 71045; 80048; 80053; 80061; 82550; 82553; 82948; 83036; 83605; 83735; 84443; 84484; 84550; 85025; 85610; 85651; 85730; 86705; 86706; 87040; 87071; 87186; 87205; 87340; 93005; 93925; 93971; 99284; J1815; J2270; J2405; J2543; J2930; J3370; J7030; J7050; J7512; Q9967

== ENCOUNTER 2021-04-30 22:56 | Emergency (ER) | payer OTHER, MEDICARE ==
[~2021-04-30] VITALS: Ht 165.1 cm; Wt 103.0 kg
[~2021-04-30 22:56] MED LIST changes: +VANCOMYCIN HCL1 GM IV
[2021-04-30 23:22] LABS: BASOPHILS % 0.2 % (0.0-1.0); EOSINOPHILS % 0.1 % (0.0-6.0); HEMATOCRIT 26.5 % (38.2-49.6); LYMPHOCYTES # (AUTO) 1.6 (1.0-3.2); LYMPHOCYTES % 12.7 % (18.0-39.1); MEAN CORPUSCULAR HEMOGLOBIN 28.5 pg (28-32); MEAN CORPUSCULAR HGB CONC 30.2 g/dL (31-35); MEAN CORPUSCULAR VOLUME 94.3 fL (81-99); MONOCYTES # (AUTO) 0.7 (0.2-0.8); MONOCYTES % 5.5 % (4.4-11.3); NEUTROPHILS # (AUTO) 9.9 (2.1-6.9); PLATELET COUNT 279 x10e3/uL (140-360); RED BLOOD COUNT 2.81 x10e6/uL (4.3-5.7); RED CELL DISTRIBUTION WIDTH 13.8 % (11.7-14.4)
[2021-04-30 23:31] LABS: INR 1.05; PROTHROMBIN TIME 13.9 seconds (11.9-14.5)
[2021-04-30 23:32] LABS: PARTIAL THROMBOPLASTIN TIME 27.3 seconds (23.8-35.5)
[2021-04-30 23:36] LABS: ANION GAP 20.2 mmol/L (8-16); CALCIUM 9.5 mg/dL (8.4-10.2); CREATININE, SERUM 5.51 mg/dL (0.72-1.25); POTASSIUM 3.2 mmol/L (3.5-5.1)
[2021-04-30 23:42] LABS: CLARITY,URINE TURBID (CLEAR); COLOR,URINE RED (YELLOW); KETONES,URINE NEGATIVE (NEGATIVE); LEUKOCYTE ESTERASE ,URINE SMALL (NEGATIVE); NITRITE,URINE NEGATIVE (NEGATIVE); PROTEIN,URINE DIPSTICK >=300 (NEGATIVE); URINE UROBILINOGEN 0.2 mg/dL (0.2 - 1)
[2021-04-30 23:47] LABS: BACTERIA,URINE MANY /HPF; EPITHELIAL CELLS,URINE FEW /LPF; RBC,URINE >50 /HPF (0-5)
[2021-05-01] MEDS ORDERED: CEFTRIAXONE 1 GM in SODIUM CHLORIDE 0.9% 50ML 50 ML IV ONE (01:00)
[2021-05-01 01:20] VITALS: BP 165/85
== END 2021-05-01 01:25 | disposition home or self-care (01) ==
LOC: ER 23:02
DX: R30.0 Dysuria (principal); N30.91 Cystitis, unspecified with hematuria; I12.0 Hypertensive chronic kidney disease with stage 5 chronic kidney disease or end stage renal disease; E11.22 Type 2 diabetes mellitus with diabetic chronic kidney disease; N18.6 End stage renal disease; Z99.2 Dependence on renal dialysis; Z95.5 Presence of coronary angioplasty implant and graft
CPT/HCPCS: 36415; 74176; 80048; 81001; 85025; 85610; 85730; 87086; 99284; J0696; 87186